=== PATIENT | female | born 1945 | race Caucasian/White ===

== ENCOUNTER 2020-10-04 09:27 | Outpatient (REF) | payer MEDICARE, SELFPAY ==
[2020-10-04 11:16] LABS: MANUAL DIFF FLAG NO
[2020-10-04 11:20] LABS: Glucose Urine UA NEG (NEG); Leukocyte Esterase Urine TRACE (NEG); Nitrite Urine NEG (NEG); PH 5.5 (5.0-8.0); Urine Blood NEG (NEG); Urine Ketones NEG (NEG); Urine Protein NEG (NEG-TRACE)
[2020-10-04 11:21] LABS: Appearance Urine HAZY; Color Urine YELLOW
[2020-10-04 11:37] LABS: Basophils Percent Auto 0.8 % (0-2); Eosinophils Absolute Auto 0.2 X10*3/uL (0.0-0.4); Eosinophils Percent Auto 3.8 % (0-4); Hematocrit 34.2 % (37-47); Hemoglobin 11.1 g/dl (12.0-16.0); Imm Gran Abs Auto 0.02 X10*3/uL (0.00-0.03); Imm Gran Pct Auto 0.4 % (0.0-0.4); Lymphocytes Absolute Auto 1.6 X10*3/uL (1.2-4.9); Lymphocytes Percent Auto 32.7 % (20-40); Mean Corpuscular HGB Conc 32.5 g/dl (31.0-35.0); Mean Corpuscular Hemoglobin 29.8 pg (27.0-33.0); Mean Corpuscular Volume 91.9 fL (80-98); Mean Platelet Volume 10.9 fL (9.4-12.3); Monocytes Absolute Auto 0.3 X10*3/uL (0.1-1.2); Monocytes Percent Auto 5.8 % (2-11); Neutrophils Absolute Auto 2.8 X10*3/uL (2.0-8.3); Neutrophils Percent Auto 56.5 % (45-73); Platelet Count 247 X10*3/uL (160-400); Red Blood Count 3.72 X10*6/uL (4.20-5.50)
[2020-10-04 11:54] LABS: Microalbum/Creatinine Ratio Ur 22.6 ug/mg cr
[2020-10-04 12:00] LABS: Alanine Aminotransferase 12 U/L (0-31); Albumin Level 3.8 g/dL (3.5-5.0); Alkaline Phosphatase 58 U/L (39-117); Anion Gap 11 (12-20); Aspartate Amino Transferase 13 U/L (5-31); Bilirubin Total 0.5 mg/dL (0.0-1.0); Blood Urea Nitrogen 23 mg/dL (9-16); Calcium 9.6 mg/dL (8.4-10.2); Carbon Dioxide 24 mmol/L (22-29); Chloride 108 mmol/L (96-108); Cholesterol 177 mg/dL; Estimated Glomerular Filt Rate > 60; Glucose Fasting 95 mg/dL (60-99); HDL Cholesterol 46 mg/dL; LDL Cholesterol Calculated 101 mg/dl; Potassium 4.4 mmol/L (3.3-5.1); Sodium 139 mmol/L (135-145); Triglycerides 154 mg/dL
[2020-10-04 12:04] LABS: Bacteria Urine 2+ /LPF; RBC Urine 0 /HPF (0); Squamous Epithelial Cell Urine 3+ /LPF
[2020-10-04 12:05] LABS: Estimated Average Glucose 111 mg/dL; Hemoglobin A1c % 5.5 %
[2020-10-04 12:39] LABS: Reflex LDLD? No
== END 2020-10-04 09:28 | disposition home or self-care (01) ==
LOC: HO.HMGCLDS 09:27
PROVIDERS: Visit Provider Internal Medicine
DX: I10 Essential (primary) hypertension (principal); R73.03 Prediabetes; E78.00 Pure hypercholesterolemia, unspecified; Z00.00 Encounter for general adult medical examination without abnormal findings
CPT/HCPCS: 36415; 80053; 80061; 81001; 82043; 83036; 85025

== ENCOUNTER 2020-11-22 09:29 | Inpatient (IN) | payer MEDICARE, SELFPAY ==
[2020-11-22] VITALS (9 sets, daily range): BP systolic 97–147; BP diastolic 45–78; PULSE 28–80; RESP 12–18; TEMP 36.4–37.2; O2SAT 96–100; BMI 32.5
--- NOTE | ~2020-11-22 | XR_ITS ---
EXAMINATION: XR CHEST CLINICAL INFORMATION: Pacemaker placed. COMPARISON: Chest 11/22/2020 TECHNIQUE: Frontal view of the chest was obtained. FINDINGS: There is interval insertion of pacemaker as with there are electrodes in the right atrium and right ventricle. The lungs are hyperexpanded but clear. The heart size is borderline enlarged. Pulmonary vascularity is normal. No gross bony abnormality seen. XR/XR chest 1V IMPRESSION: Hypoexpanded lungs with no acute process. New pacer electrodes with their tips in the right atrium and right ventricle. No pneumothorax seen.
--- NOTE | ~2020-11-22 | XR_ITS ---
EXAMINATION: XR CHEST CLINICAL INFORMATION: Weakness COMPARISON: Previous chest x-ray most recent December 2018 TECHNIQUE: Frontal view of the chest was obtained. FINDINGS: The lung volumes are low. The cardiac silhouette is slightly is enlarged but stable. Hilar and mediastinal contours are unremarkable. There is subsegmental atelectasis at the right lung base. The lungs are otherwise clear. There is no pleural effusion or pneumothorax. There are degenerative changes of the spine. XR/XR chest 1V IMPRESSION: Enlarged cardiac silhouette similar to previous exam. Low lung volumes and subsegmental atelectasis at the right lung base.
--- NOTE | ~2020-11-22 | CT_ITS ---
EXAMINATION: CT HEAD WITHOUT CONTRAST CLINICAL INFORMATION: Weakness. Acute mental status change. COMPARISON: None TECHNIQUE: Contiguous axial imaging was performed from the skull base to vertex without intravenous administration of contrast. This CT examination was performed using dose optimization techniques as appropriate, variously including the following: *Automated exposure control *Adjustment of mA and/or kV according to patient size (this includes techniques or standardized protocols for targeted exams where dose is matched to indication/reason for exam; i.e. extremities or head) *Use of iterative reconstruction technique DLP: 615 mGy-cm FINDINGS: There is no evidence of an extra-axial collection. There is no evidence of intra-axial or extra-axial hemorrhage. The ventricles and extra-axial CSF spaces are appropriate for age. There is nonspecific periventricular white matter disease. There are old lateral basal ganglia lacunar infarcts. No mass, mass effect or acute infarct is seen. Review at bone windows is normal. No skull fracture is seen. There is a polyp or cyst in the left maxillary sinus. Visualized paranasal sinuses, mastoid air cells and middle ears are otherwise clear. There are multiple left parotid lesions. The largest measures 8 mm. These do not appear appreciably changed from previous head and neck CTA August 2016. The right parotid gland is not included in the [id number]. CT/CT head/brain wo con IMPRESSION: No acute findings. Old bilateral basal ganglia lacunar infarcts and nonspecific periventricular white matter disease.
--- NOTE | ~2020-11-22 | FL_ITS ---
EXAMINATION: XR FLUOROSCOPY WITH IMAGES CLINICAL INFORMATION: Pacemaker placement COMPARISON: Portable chest radiograph 11/22/2020 TECHNIQUE: Fluoroscopy performed by Dr. Damien Lyles. Fluoroscopy time: 3.6 minutes DAP: 17.5 Gycm2 Images: 1 FINDINGS: Spot view targeted to the lower chest demonstrates pacemaker leads overlying the right atrium and right ventricle. FL/FL guidance in OR IMPRESSION: Fluoroscopy for pacemaker placement.
--- NOTE | ~2020-11-22 | MR_ITS ---
EXAMINATION: MRI BRAIN WITHOUT CONTRAST CLINICAL INFORMATION: Right-sided weakness. COMPARISON: CT scan of the head 11/22/2020. TECHNIQUE: Multiplanar MR imaging of the brain was performed without contrast. FINDINGS: There are scattered nonspecific foci of T2 FLAIR signal hyperintensity within the periventricular white matter that most likely represent a chronic manifestation of small vessel ischemia. No acute territorial infarct. No pathological magnetic susceptibility artifact. Intracranial vascular flow voids are maintained. There is no intracranial mass effect or midline shift. No abnormal extra-axial collection. Lateral and third ventricles are normal. No hydrocephalus. Midline structures including the cervicomedullary junction are normal. No acute bone marrow signal changes. There is no mastoid middle ear effusion. A few small retention cysts within the alveolar recess of the left maxillary sinus are noted. Globes and orbits are symmetric. MR/MR head/brain wo con IMPRESSION: There are numerous chronic small vessel ischemic changes within the periventricular white matter. No evidence of acute territorial infarct or hemorrhage.
--- NOTE | 2020-11-22 09:51 | ECG_ITS ---
Test Reason : WEAKNESS Blood Pressure : / mmHG Vent. Rate : 047 BPM Atrial Rate : 047 BPM P-R Int : 150 ms QRS Dur : 094 ms QT Int : 422 ms P-R-T Axes : 000 002 026 degrees QTc Int : 373 ms Poor data quality Sinus bradycardia with sinus arrhythmia Otherwise normal ECG When compared with ECG of 23-DEC-2018 10:59, No significant changes seen Referred By: Kimberly Munoz Electronically Signed By:Mikael Faulkner
--- NOTE | 2020-11-22 10:55 | ED_ITS ---
HPI - Weakness General Chief complaint: Weakness Stated complaint: INCREASED WEAKNESS & CONFUSION X'S DAYS Time Seen by Provider: 11/22/20 09:50 Source: patient Mode of arrival: ambulatory History of Present Illness HPI Narrative: 75-year-old female with a past medical history of HTN, HLD, breast CA, dementia, brought in by family for increased confusion noted yesterday around 3:00 p.m., difficulty ambulating, and leading to right side. No reported falls or trauma, take baby ASA. No reported fever, cough. Patient denies CP/SOB, abdominal pain History limited secondary to patient's baseline dementia Related Data Home Medications Medication Instructions Recorded Confirmed amlodipine 1 tab PO DAILY 11/22/20 11/22/20 aspirin 81 mg PO DAILY 11/22/20 11/22/20 atorvastatin 1 tab PO DAILY 11/22/20 11/22/20 donepezil 1 tab PO BEDTIME 11/22/20 11/22/20 doxazosin 1 tab PO DAILY 11/22/20 11/22/20 folic acid 0.4 mg PO DAILY 11/22/20 11/22/20 potassium chloride 1 tab PO DAILY 11/22/20 11/22/20 tamoxifen 1 tab PO DAILY 11/22/20 11/22/20 valsartan-hydrochlorothiazide 1 tab PO DAILY 11/22/20 11/22/20 Allergies Allergy/AdvReac Type Severity Reaction Status Date / Time clindamycin [Clindamycin] Allergy Mild HIVES, RASH Verified 11/22/20 09:49 lisinopril [LISINOPRIL] Allergy Unknown COUGH Verified 11/22/20 09:49 Clindamycin HCl Allergy Unknown rash Uncoded 03/12/17 00:00 Review of Systems Review of Systems: Constitutional: No Fever, No Chills Cardiovascular: No Chest Pain, No SOB, No Edema Respiratory: No Cough, No Dyspnea Gastrointestinal: No Nausea, No Vomiting, No Abdominal pain Musculoskeletal: No joint pain, No Joint Swelling Skin: No Skin Lesions, No rash Neuro: + AMS, +increased confusion, +difficulty ambulating Yes all other systems are reviewed and are negative [facility] Past Medical History Attestation statement: The following information was validated with the patient. Medical History (Updated 11/22/20 @ 09:46 by Cuca Bradford) Breast cancer Dementia High cholesterol HTN (hypertension) Surgical History (Updated 11/22/20 @ 09:46 by Cuca Bradford) H/O lumpectomy Social History Social History Patient Tobacco Use Status: Never used Tobacco Use of substances other than those prescribed or required for medical reasons: No Advance Directives: Yes Advance Directives Information Provided: No Advance Directives on File: No Physical Exam Vital Signs: Vital Signs: Last Vital Signs Temp 97.6 F 11/22/20 09:42 Pulse 61 11/22/20 12:31 Resp 16 11/22/20 12:03 BP 123/53 L 11/22/20 12:31 Pulse Ox 100 11/22/20 12:03 Body Mass Index 32.5 Const: General: cooperative Orientation/consciousness: oriented to person and oriented to place Limitations: other limitations (dementia) HENMT: Head: Yes normal to inspection and Yes atraumatic Ears: hearing grossly normal bilaterally General nose exam: Normal external nose present Face and sinus: Yes normal facial exam Eyes: General: appearance normal, both eyes and all related structures EOM: EOMs intact bilaterally Neck: Neck: Yes normal visual inspection Resp: Effort & Inspection: normal respiratory effort Auscultation: clear to auscultation bilaterally, no rales and no wheezes Cardio: Rate: bradycardic Heart sounds: S1 normal heart sound present and S2 normal heart sound present GI: Inspection: Yes normal to inspection Palpation (GI): Soft to palpation, nontender, no guarding and not rigid Skin: Rashes: no rashes Wounds: no wounds Neuro: Other: Rightward leaning. Able to perform [id number] on the right, not following commands to perform on left General: oriented to person, oriented to place and tone normal Cranial nerves: Yes CN's II-XII intact bilaterally Motor exam (neuro): Abnormal motor strength present (Decreased strength in LLE) Extrem: General: Yes normal to inspection NIH Stroke Scale Internal: Initial- Upon Arrival Level of Consciousness: Alert Level of Consciousness Questions: Answers one question correctly Level of Consciousness Commands: Performs both tasks correctly Best Gaze: Normal Visual: No visual loss Facial Palsy: Normal Motor Arm (Right): No drift Motor Arm (Left): No drift Motor Leg (Right): No drift Motor Leg (Left): No effort against gravity Limb Ataxia: Absent Sensory: Normal Best Language: No aphasia Dysarthia: Normal Extinction and Inattention: No abnormality Score: 4 Course Course Course Narrative: -no leukocytosis, H&H stable low 2.9 > 10 mEq x4 IV repletion ordered. THEO with creatinine 1.6. Troponin elevated at 46.9 > will obtain 3 hour repeat -patient bradycardic down to 24, 0.5 mg of Atropine given heart rate improved to 66. Family at bedside signed MOLST form patient is now DNR/DNI however family agreeable for pacemaker placement. -1230--spoke to Cardiology Dr. Faulkner he will evaluate patient in the ED. Recommended consulting thoracic surgery. Thoracic's paged XR chest 1V IMPRESSION: Enlarged cardiac silhouette similar to previous exam. Low lung volumes and subsegmental atelectasis at the right lung base. CT head/brain wo con IMPRESSION: No acute findings. Old bilateral basal ganglia lacunar infarcts and nonspecific periventricular white matter disease. -1317--spoke to thoracic surgery PA, aware of case, pending Dr. Limon recommendations for pacermaker type/time for placement MDM - Weakness MDM Narrative Medical decision making narrative: 75-year-old female with a past medical hi story of HTN, HLD, breast CA, dementia, brought in by family for increased confusion noted yesterday around 3:00 p.m., difficulty ambulating, and leading to right side. On exam bradycardic, right were leaning, physical exam as above. No signs of trauma. NIHSS =4 however patient unable to perform complete exam secondary to dementia/AMS. Patient is not a candidate for tPA, out of the window. Concern for CVA vs metabolic/infectious etiology Plan: EKG, labs, head CT, CXR, anticipated admission Medical Records Attestation: I reviewed the patient's medical records. Lab Data Attestation: I reviewed the patient's lab results. Result diagrams: 11/22/20 11:03 11/22/20 11:03 Labs: Lab Results 11/22/20 11/22/20 11/22/20 Range/Units 11:03 11:03 11:03 WBC 6.0 (4.8-10.8) X10*3/uL RBC 3.71 L (4.20-5.50) X10*6/uL Hgb 10.9 L (12.0-16.0) g/dl Hct 33.3 L (37-47) % MCV 89.8 (80-98) fL MCH 29.4 (27.0-33.0) pg MCHC 32.7 (31.0-35.0) g/dl RDW 12.7 (11.0-16.0) % Plt Count 206 (160-400) X10*3/uL MPV 10.5 (9.4-12.3) fL Immature Gran % (Auto) 0.2 (0.0-0.4) % Neut % (Auto) 75.0 H (45-73) % Lymph % (Auto) 17.4 L (20-40) % [place] % (Auto) 5.9 (2-11) % Eos % (Auto) 0.8 (0-4) % Baso % (Auto) 0.7 (0-2) % Lymph # (Auto) 1.0 L (1.2-4.9) X10*3/uL [place] # (Auto) 0.4 (0.1-1.2) X10*3/uL Eos # (Auto) 0.1 (0.0-0.4) X10*3/uL Baso # (Auto) 0.0 (0.0-0.2) X10*3/uL Abs Immat Gran (auto) 0.01 (0.00-0.03) X10*3/uL Absolute Neuts (auto) 4.5 (2.0-8.3) X10*3/uL Absolute Nucleated RBC 0.000 (0.0-0.012) X10*3/uL Nucleated RBC % (auto) 0.0 (0.0-0.2) /100WBC PT 12.7 (10.8-13.0) SEC INR 1.1 (0.9-1.1) APTT 26.4 (24.1-38.0) SEC Sodium 140 (135-145) mmol/L Potassium 2.9 L D (3.3-5.1) mmol/L Chloride 109 H (96-108) mmol/L Carbon Dioxide 20 L (22-29) mmol/L Anion Gap 14 (12-20) BUN 32 H (9-16) mg/dL Creatinine 1.65 H (0.5-1.4) mg/dL Estim Creat Clear Calc 28.6 Estimated GFR 30 Random Glucose 97 (60-115) mg/dL Lactic Acid (0.5-2.0) mmol/L Calcium 9.7 (8.4-10.2) mg/dL Magnesium 2.2 (1.6-2.6) mg/dL Total Bilirubin 0.4 (0.0-1.0) mg/dL Direct Bilirubin 0.2 (0.0-0.5) mg/dL AST 56 H (5-31) U/L ALT 22 (0-31) U/L Alkaline Phosphatase 62 (39-117) U/L Ammonia (13-55) umol/L Troponin I High Sens (<3.5-17.0) ng/L B-Natriuretic Peptide (<100) pg/mL Total Protein 6.5 (6.5-8.0) g/dL Albumin 3.5 (3.5-5.0) g/dL Lipase 33 (8-78) U/L TSH 0.90 (0.32-4.0) uIU/mL Urine Color Urine Appearance Urine pH (5.0-8.0) Ur Specific [place] (1.005-1.025) Urine Protein (NEG-TRACE) MG/DL Urine Glucose (UA) (NEG) MG/DL Urine Ketones (NEG) MG/DL Urine Blood (NEG) Urine Nitrite (NEG) Ur Leukocyte Esterase (NEG) COVID-19 (JANET) (Negative) COVID-19 Clin Com 11/22/20 11/22/20 11/22/20 Range/Units 11:03 11:03 11:03 WBC (4.8-10.8) X10*3/uL RBC (4.20-5.50) X10*6/uL Hgb (12.0-16.0) g/dl Hct (37-47) % MCV (80-98) fL MCH (27.0-33.0) pg MCHC (31.0-35.0) g/dl RDW (11.0-16.0) % Plt Count (160-400) X10*3/uL MPV (9.4-12.3) fL Immature Gran % (Auto) (0.0-0.4) % Neut % (Auto) (45-73) % Lymph % (Auto) (20-40) % [place] % (Auto) (2-11) % Eos % (Auto) (0-4) % Baso % (Auto) (0-2) % Lymph # (Auto) (1.2-4.9) X10*3/uL [place] # (Auto) (0.1-1.2) X10*3/uL Eos # (Auto) (0.0-0.4) X10*3/uL Baso # (Auto) (0.0-0.2) X10*3/uL Abs Immat Gran (auto) (0.00-0.03) X10*3/uL Absolute Neuts (auto) (2.0-8.3) X10*3/uL Absolute Nucleated RBC (0.0-0.012) X10*3/uL Nucleated RBC % (auto) (0.0-0.2) /100WBC PT (10.8-13.0) SEC INR (0.9-1.1) APTT (24.1-38.0) SEC Sodium (135-145) mmol/L Potassium (3.3-5.1) mmol/L Chloride (96-108) mmol/L Carbon Dioxide (22-29) mmol/L Anion Gap (12-20) BUN (9-16) mg/dL Creatinine (0.5-1.4) mg/dL Estim Creat Clear Calc Estimated GFR Random Glucose (60-115) mg/dL Lactic Acid 0.9 (0.5-2.0) mmol/L Calcium (8.4-10.2) mg/dL Magnesium (1.6-2.6) mg/dL Total Bilirubin (0.0-1.0) mg/dL Direct Bilirubin (0.0-0.5) mg/dL AST (5-31) U/L ALT (0-31) U/L Alkaline Phosphatase (39-117) U/L Ammonia 34 (13-55) umol/L Troponin I High Sens 46.9 H* (<3.5-17.0) ng/L B-Natriuretic Peptide 76 (<100) pg/mL Total Protein (6.5-8.0) g/dL Albumin (3.5-5.0) g/dL Lipase (8-78) U/L TSH (0.32-4.0) uIU/mL Urine Color Urine Appearance Urine pH (5.0-8.0) Ur Specific [place] (1.005-1.025) Urine Protein (NEG-TRACE) MG/DL Urine Glucose (UA) (NEG) MG/DL Urine Ketones (NEG) MG/DL Urine Blood (NEG) Urine Nitrite (NEG) Ur Leukocyte Esterase (NEG) COVID-19 (JANET) (Negative) COVID-19 Clin Com 11/22/20 11/22/20 Range/Units 11:39 11:54 WBC (4.8-10.8) X10*3/uL RBC (4.20-5.50) X10*6/uL Hgb (12.0-16.0) g/dl Hct (37-47) % MCV (80-98) fL MCH (27.0-33.0) pg MCHC (31.0-35.0) g/dl RDW (11.0-16.0) % Plt Count (160-400) X10*3/uL MPV (9.4-12.3) fL Immature Gran % (Auto) (0.0-0.4) % Neut % (Auto) (45-73) % Lymph % (Auto) (20-40) % [place] % (Auto) (2-11) % Eos % (Auto) (0-4) % Baso % (Auto) (0-2) % Lymph # (Auto) (1.2-4.9) X10*3/uL [place] # (Auto) (0.1-1.2) X10*3/uL Eos # (Auto) (0.0-0.4) X10*3/uL Baso # (Auto) (0.0-0.2) X10*3/uL Abs Immat Gran (auto) (0.00-0.03) X10*3/uL Absolute Neuts (auto) (2.0-8.3) X10*3/uL Absolute Nucleated RBC (0.0-0.012) X10*3/uL Nucleated RBC % (auto) (0.0-0.2) /100WBC PT (10.8-13.0) SEC INR (0.9-1.1) APTT (24.1-38.0) SEC Sodium (135-145) mmol/L Potassium (3.3-5.1) mmol/L Chloride (96-108) mmol/L Carbon Dioxide (22-29) mmol/L Anion Gap (12-20) BUN (9-16) mg/dL Creatinine (0.5-1.4) mg/dL Estim Creat Clear Calc Estimated GFR Random Glucose (60-115) mg/dL Lactic Acid (0.5-2.0) mmol/L Calcium (8.4-10.2) mg/dL Magnesium (1.6-2.6) mg/dL Total Bilirubin (0.0-1.0) mg/dL Direct Bilirubin (0.0-0.5) mg/dL AST (5-31) U/L ALT (0-31) U/L Alkaline Phosphatase (39-117) U/L Ammonia (13-55) umol/L Troponin I High Sens (<3.5-17.0) ng/L B-Natriuretic Peptide (<100) pg/mL Total Protein (6.5-8.0) g/dL Albumin (3.5-5.0) g/dL Lipase (8-78) U/L TSH (0.32-4.0) uIU/mL Urine Color YELLOW Urine Appearance CLEAR Urine pH 6.0 (5.0-8.0) Ur Specific [place] 1.025 (1.005-1.025) Urine Protein TRACE (NEG-TRACE) MG/DL Urine Glucose (UA) NEG (NEG) MG/DL Urine Ketones NEG (NEG) MG/DL Urine Blood NEG (NEG) Urine Nitrite NEG (NEG) Ur Leukocyte Esterase NEG (NEG) COVID-19 (JANET) Negative (Negative) COVID-19 Clin Com See Note ECG Data Attestation: I personally reviewed and interpreted this ECG as follows: ECG interpretation date: 11/22/20 ECG interpretation time: 09:58 Interpretation: EKG sinus bradycardia. Artifact present. No STEMI. QTC 373 Discharge Plan Discharge Prescriptions: No Action atorvastatin 80 mg tablet 1 tab PO DAILY RF: 0 donepezil 5 mg tablet 1 tab PO BEDTIME RF: 0 potassium chloride 10 mEq tablet extended release 1 tab PO DAILY RF: 0 folic acid 400 mcg Tablet 0.4 mg PO DAILY RF: 0 amlodipine 10 mg tablet 1 tab PO DAILY RF: 0 aspirin 81 mg Tablet,Chewable 81 mg PO DAILY RF: 0 tamoxifen 20 mg tablet 1 tab PO DAILY RF: 0 doxazosin 2 mg tablet 1 tab PO DAILY RF: 0 valsartan-hydrochlorothiazide 320-12.5 mg tablet 1 tab PO DAILY RF: 0
--- NOTE | 2020-11-22 11:09 | HE.PHANOTE ---
Med Rec completed from med list brought in with pt. Family states she takes OTC Folic Acid 1 tab daily
[2020-11-22 11:10] LABS: MANUAL DIFF FLAG NO
[2020-11-22 11:11] LABS: Basophils Percent Auto 0.7 % (0-2); Eosinophils Absolute Auto 0.1 X10*3/uL (0.0-0.4); Eosinophils Percent Auto 0.8 % (0-4); Hematocrit 33.3 % (37-47); Hemoglobin 10.9 g/dl (12.0-16.0); Imm Gran Abs Auto 0.01 X10*3/uL (0.00-0.03); Imm Gran Pct Auto 0.2 % (0.0-0.4); Lymphocytes Percent Auto 17.4 % (20-40); Mean Corpuscular HGB Conc 32.7 g/dl (31.0-35.0); Mean Corpuscular Hemoglobin 29.4 pg (27.0-33.0); Mean Corpuscular Volume 89.8 fL (80-98); Mean Platelet Volume 10.5 fL (9.4-12.3); Monocytes Absolute Auto 0.4 X10*3/uL (0.1-1.2); Monocytes Percent Auto 5.9 % (2-11); Neutrophils Absolute Auto 4.5 X10*3/uL (2.0-8.3); Platelet Count 206 X10*3/uL (160-400); Red Blood Count 3.71 X10*6/uL (4.20-5.50); Red Cell Distribution Width 12.7 % (11.0-16.0)
[2020-11-22 11:18] LABS: INTERNATIONAL NORM RATIO 1.1 (0.9-1.1); Prothrombin Time 12.7 SEC (10.8-13.0)
[2020-11-22 11:20] LABS: Partial Thromboplastin Time 26.4 SEC (24.1-38.0)
--- NOTE | 2020-11-22 11:20 | PC.NURSE ---
pt alert, oriented to self and place but some confusion at baseline per family. according the family pt has been more confused then usual and having difficulty with ambulating- at baseline able to shuffle and pivot but not able to do so at this time, also is leaning towards her right side for the past two days. pt's hr rate ranges from 29-50's on the monitor, bp maintained at this time. pt states having some nausea but no vomiting at this time, states having some knee pain as well. noticed some redness to the coccyx area. pt put on pacers pads
[2020-11-22 11:30] LABS: Ammonia 34 umol/L (13-55)
[2020-11-22 11:35] LABS: Lactic Acid 0.9 mmol/L (0.5-2.0)
[2020-11-22] MEDS: 0.9 % Sodium Chloride 1,000 ML 999 ML IVCONT (11:35)
--- NOTE | 2020-11-22 11:35 | PC.NURSE ---
pt bp slightly dropping, pt appears to slightly more drowsy as well, aware and ns 1000ml running
[2020-11-22 11:43] LABS: Alanine Aminotransferase 22 U/L (0-31); Albumin Level 3.5 g/dL (3.5-5.0); Alkaline Phosphatase 62 U/L (39-117); Aspartate Amino Transferase 56 U/L (5-31); Bilirubin Direct 0.2 mg/dL (0.0-0.5); Bilirubin Total 0.4 mg/dL (0.0-1.0); Blood Urea Nitrogen 32 mg/dL (9-16); Calcium 9.7 mg/dL (8.4-10.2); Creatinine Clr Calc Pharmacy 28.6; Estimated Glomerular Filt Rate 30; Glucose Random 97 mg/dL (60-115); Lipase 33 U/L (8-78); Magnesium 2.2 mg/dL (1.6-2.6); Total Protein 6.5 g/dL (6.5-8.0)
--- NOTE | 2020-11-22 11:45 | PC.NURSE ---
family members at bedside just signed a dnr order
[2020-11-22 11:48] LABS: B Type Natriuretic Peptide 76 pg/mL (<100); Troponin-I High Sensitivity 46.9 ng/L (<3.5-17.0)
[2020-11-22] MEDS: Atropine Sulfate 1 MG/10 ML SYRINGE 0.5 MG IVPUSH (11:52)
[2020-11-22 11:56] LABS: Anion Gap 14 (12-20); Carbon Dioxide 20 mmol/L (22-29); Chloride 109 mmol/L (96-108); Potassium 2.9 mmol/L (3.3-5.1); Sodium 140 mmol/L (135-145)
[2020-11-22 12:12] LABS: Appearance Urine CLEAR; Color Urine YELLOW; Glucose Urine UA NEG (NEG); Leukocyte Esterase Urine NEG (NEG); Nitrite Urine NEG (NEG); Specific Gravity - Urine 1.025 (1.005-1.025); Urine Blood NEG (NEG); Urine Ketones NEG (NEG); Urine Protein TRACE MG/DL (NEG-TRACE)
[2020-11-22 12:30] LABS: COVID-19 Test Negative (Negative); IDNOW Serial# 9DD0AD1C
[2020-11-22] MEDS: Potassium Chloride/H20 10 MEQ/100 ML PIGGYBACK 100 MEQ IV ×4 (12:43→18:23)
--- NOTE | 2020-11-22 14:10 | P.HPHOSP_ITS ---
History of Present Illness Date of Service: 11/22/20 Chief Complaint: ams 75-year-old female brought in by family for right-sided weakness and altered mental status. Patient has baseline dementia, but is normally communicative and ambulatory. Family noted the patient had become weak over the last couple days, specifically leaning towards the right side, and unable to walk on her own. She also seemed more lethargic and confused than her baseline. Symptoms seem to persist, therefore, patient was brought to the ED. In ED patient noted to have acute kidney injury, hyperkalemia, significant sinus bradycardia that responded to atropine. Patient is not on beta-natan or calcium channel natan, however, she is on Aricept. Review of Systems Review of Systems: Constitutional: Denies fever, denies Chills Eyes: denies blurry vision ENT: denies sore throat CVS: denies chest pain Respiratory: Denies dyspnea GI: no abdominal pain : denies dysuria MSK: denies neck pain Skin: denies rash Neuro: denies specific motor weakness Psych: denies suicidal ideation Endocrine: denies heat/cold intoleratnce Hematologic: denies easy bleeding Allergy: denies hives [facility] Medical History Breast cancer Dementia High cholesterol HTN (hypertension) Family history: reviewed and not pertinent Surgical History H/O lumpectomy Social History Patient Tobacco Use Status: Never used Tobacco Use of substances other than those prescribed or required for medical reasons: No Advance Directives: Yes Advance Directives Information Provided: No Advance Directives on File: No Meds Allergies Allergy/AdvReac Type Severity Reaction Status Date / Time clindamycin [Clindamycin] Allergy Mild HIVES, RASH Verified 11/22/20 09:49 lisinopril [LISINOPRIL] Allergy Unknown COUGH Verified 11/22/20 09:49 Clindamycin HCl Allergy Unknown rash Uncoded 03/12/17 00:00 Active Medications: Current Medications Generic Name Dose Route Start Last Admin Trade Name Freq PRN Reason Stop Dose Admin Potassium Chloride 10 meq in 100 mls @ 100 mls/hr 11/22/20 12:30 11/22/20 14:06 IV 11/22/20 16:29 100 mls/hr Q1H DAYANNA Administration Pharmacy Consult 1 each 11/22/20 09:50 Consult Rx Perform Med Rec MISCELLANE ONCE PRN Consult order Home Medications Medication Instructions Recorded Confirmed Last Taken Type amlodipine 1 tab PO DAILY 11/22/20 11/22/20 11/22/20 History aspirin 81 mg PO DAILY 11/22/20 11/22/20 11/22/20 History atorvastatin 1 tab PO DAILY 11/22/20 11/22/20 11/22/20 History donepezil 1 tab PO BEDTIME 11/22/20 11/22/20 11/22/20 History doxazosin 1 tab PO DAILY 11/22/20 11/22/20 11/22/20 History folic acid 0.4 mg PO DAILY 11/22/20 11/22/20 11/22/20 History potassium chloride 1 tab PO DAILY 11/22/20 11/22/20 11/22/20 History tamoxifen 1 tab PO DAILY 11/22/20 11/22/20 11/22/20 History valsartan-hydrochlorothiazide 1 tab PO DAILY 11/22/20 11/22/20 11/22/20 History Physical Exam Vital Signs and Narrative: Vital Signs: Last Vital Signs Temp 97.6 F 11/22/20 09:42 Pulse 61 11/22/20 12:31 Resp 16 11/22/20 12:03 BP 123/53 L 11/22/20 12:31 Pulse Ox 100 11/22/20 12:03 Body Mass Index 32.5 General: no acute distress HEENT: atraumatic Neck: normal to visual inspection CVS: S1, S2, RRR Resp: CTA bilateral Chest: non tender GI: soft, non tender, non distended : no CVA tenderness Skin: no rashes Extremities: no edema Neuro: Oriented X2, grossly weak, does not appear to have a focal deficit Psych: cooperative Results Labs CBC and Chem 7: 11/22/20 11:03 11/22/20 11:03 Labs: Laboratory Results - last 24 hr 11/22/20 11/22/20 11/22/20 11:03 11:03 11:03 MCV 89.8 MCH 29.4 MCHC 32.7 RDW 12.7 Plt Count 206 MPV 10.5 Immature Gran % (Auto) 0.2 Neut % (Auto) 75.0 H Lymph % (Auto) 17.4 L [place] % (Auto) 5.9 Eos % (Auto) 0.8 Baso % (Auto) 0.7 Lymph # (Auto) 1.0 L [place] # (Auto) 0.4 Eos # (Auto) 0.1 Baso # (Auto) 0.0 Abs Immat Gran (auto) 0.01 Absolute Neuts (auto) 4.5 Absolute Nucleated RBC 0.000 Nucleated RBC % (auto) 0.0 PT 12.7 INR 1.1 APTT 26.4 Anion Gap 14 Estim Creat Clear Calc 28.6 Estimated GFR 30 Random Glucose 97 Lactic Acid Calcium 9.7 Magnesium 2.2 Total Bilirubin 0.4 Direct Bilirubin 0.2 AST 56 H ALT 22 Alkaline Phosphatase 62 Ammonia Troponin I High Sens B-Natriuretic Peptide Total Protein 6.5 Albumin 3.5 Lipase 33 TSH 0.90 Urine Color Urine Appearance Urine pH Ur Specific [place] Urine Protein Urine Glucose (UA) Urine Ketones Urine Blood Urine Nitrite Ur Leukocyte Esterase COVID-19 (JANET) [facility] 11/22/20 11/22/20 11/22/20 11:03 11:03 11:03 MCV MCH MCHC RDW Plt Count MPV Immature Gran % (Auto) Neut % (Auto) Lymph % (Auto) [place] % (Auto) Eos % (Auto) Baso % (Auto) Lymph # (Auto) [place] # (Auto) Eos # (Auto) Baso # (Auto) Abs Immat Gran (auto) Absolute Neuts (auto) Absolute Nucleated RBC Nucleated RBC % (auto) PT INR APTT Anion Gap Estim Creat Clear Calc Estimated GFR Random Glucose Lactic Acid 0.9 Calcium Magnesium Total Bilirubin Direct Bilirubin AST ALT Alkaline Phosphatase Ammonia 34 Troponin I High Sens 46.9 H* B-Natriuretic Peptide 76 Total Protein Albumin Lipase TSH Urine Color Urine Appearance Urine pH Ur Specific [place] Urine Protein Urine Glucose (UA) Urine Ketones Urine Blood Urine Nitrite Ur Leukocyte Esterase COVID-19 (JANET) COVID-[employer] 11/22/20 11/22/20 11:39 11:54 MCV MCH MCHC RDW Plt Count MPV Immature Gran % (Auto) Neut % (Auto) Lymph % (Auto) [place] % (Auto) Eos % (Auto) Baso % (Auto) Lymph # (Auto) [place] # (Auto) Eos # (Auto) Baso # (Auto) Abs Immat Gran (auto) Absolute Neuts (auto) Absolute Nucleated RBC Nucleated RBC % (auto) PT INR APTT Anion Gap Estim Creat Clear Calc Estimated GFR Random Glucose Lactic Acid Calcium Magnesium Total Bilirubin Direct Bilirubin AST ALT Alkaline Phosphatase Ammonia Troponin I High Sens B-Natriuretic Peptide Total Protein Albumin Lipase TSH Urine Color YELLOW Urine Appearance CLEAR Urine pH 6.0 Ur Specific [place] 1.025 Urine Protein TRACE Urine Glucose (UA) NEG Urine Ketones NEG Urine Blood NEG Urine Nitrite NEG Ur Leukocyte Esterase NEG COVID-19 (JANET) Negative COVID-19 Clin Com See Note Imaging Radiologist's Impressions: Impressions Chest X-Ray 11/22/20 09:51 IMPRESSION: Enlarged cardiac silhouette similar to previous exam. Low lung volumes and subsegmental atelectasis at the right lung base. Head CT 11/22/20 09:51 IMPRESSION: No acute findings. Old bilateral basal ganglia lacunar infarcts and nonspecific periventricular white matter disease. Assessment and Plan (1) Bradycardia: Status: Acute 75F brought in for altered mental status and weakness, found to have severe bradycardia, THEO Metabolic encephalopathy and weakness Likely due to severe bradycardia Rule out CVA Check MRI Cardio and thoracic eval for possible pacer Monitor on telemetry Stop donepezil Acute kidney injury Hold valsartan, hydrochlorothiazide Monitor closely Status post 1 L normal saline Hypertension Amlodipine, doxazosin History of breast cancer Tamoxifen DNR DNI but open to pacer DVT prophylaxis with heparin
[2020-11-22 14:46] LABS: Troponin-I High Sensitivity 40.6 ng/L (<3.5-17.0)
--- NOTE | 2020-11-22 15:06 | PC.NURSE ---
called [facility] to give awaiting a call back
--- NOTE | 2020-11-22 15:27 | PC.NURSE ---
pt of to mri along with josefina rn on the monitor.
--- NOTE | 2020-11-22 15:45 | P.CONCA_ITS ---
History of Present Illness History of Present Illness Date of Service: 11/22/20 Requesting physician: Marquez Rivas Chief complaint: AMS [place] Narrative: 75-year-old female who is presenting with change in mental status and bradycardia. Patient has advanced dementia. Usually ambulatory and communicative as per chart review and discussion with medicine team. The family noticed her to be more weak over the last week and brought her in. There was also some concern about leading to her right side. She was noticed to be bradycardic in the ER in 30s. She had 1 EKG in the system which is showing heart rate of 47 beats per minute with significant artifact and difficult to know whether there is a block or not. In any case she received atropine with improvement in her heart rate. No clear hypotension is documented in the ER. She is demented and no history is possible from her. [facility] Past Medical History Medical History (Updated 11/22/20 @ 17:15 by Mikael Faulkner MD) Breast cancer Dementia High cholesterol HTN (hypertension) Family History Family history: reviewed and not pertinent Surgical History Surgical History H/O lumpectomy Social History Social History Patient Tobacco Use Status: Never used Tobacco Use of substances other than those prescribed or required for medical reasons: No Advance Directives: Yes Advance Directives Information Provided: No Advance Directives on File: No Meds Allergies Allergy/AdvReac Type Severity Reaction Status Date / Time clindamycin [Clindamycin] Allergy Mild HIVES, RASH Verified 11/22/20 09:49 lisinopril [LISINOPRIL] Allergy Unknown COUGH Verified 11/22/20 09:49 Clindamycin HCl Allergy Unknown rash Uncoded 03/12/17 00:00 Active Medications: Current Medications Generic Name Dose Route Start Last Admin Trade Name Freq PRN Reason Stop Dose Admin Amlodipine Besylate 10 mg 11/23/20 09:00 Amlodipine Besylate 10 Mg Tablet PO DAILY [facility] Protocol Atorvastatin Calcium 80 mg 11/23/20 21:00 Atorvastatin Calcium 80 Mg Tablet PO BEDTIME DAYANNA Doxazosin Mesylate 2 mg 11/23/20 09:00 Doxazosin Mesylate 2 Mg Tablet PO DAILY [facility] Protocol Heparin Sodium (Porcine) 5,000 unit 11/22/20 14:15 Heparin Sodium,Porcine 5,000 Unit/Ml Vial SUBCUT Q12H [facility] Potassium Chloride 10 meq in 100 mls @ 100 mls/hr 11/22/20 12:30 11/22/20 15:12 IV 11/22/20 16:29 100 mls/hr Q1H [facility] Administration Pharmacy Consult 1 each 11/22/20 09:50 Consult Rx Perform Med Rec MISCELLANE ONCE PRN Consult order Potassium Chloride 10 meq 11/23/20 09:00 Potassium Chloride Er 10 Meq Capsule.Er PO DAILY [facility] Sodium Chloride 3 ml 11/22/20 16:00 0.9 % Sodium Chloride Flush 3 Ml Syringe IVFLUSH QSHIFT [facility] Tamoxifen Citrate 20 mg 11/23/20 09:00 Tamoxifen Citrate 10 Mg Tablet PO DAILY [facility] Home Medications Medication Instructions Recorded Confirmed Last Taken Type amlodipine 1 tab PO DAILY 11/22/20 11/22/20 11/22/20 History aspirin 81 mg PO DAILY 11/22/20 11/22/20 11/22/20 History atorvastatin 1 tab PO DAILY 11/22/20 11/22/20 11/22/20 History donepezil 1 tab PO BEDTIME 11/22/20 11/22/20 11/22/20 History doxazosin 1 tab PO DAILY 11/22/20 11/22/20 11/22/20 History folic acid 0.4 mg PO DAILY 11/22/20 11/22/20 11/22/20 History potassium chloride 1 tab PO DAILY 11/22/20 11/22/20 11/22/20 History tamoxifen 1 tab PO DAILY 11/22/20 11/22/20 11/22/20 History valsartan-hydrochlorothiazide 1 tab PO DAILY 11/22/20 11/22/20 11/22/20 History Physical Exam Vital Signs: Vital Signs: Last Vital Signs Temp 98.4 F 11/22/20 15:09 Pulse 69 11/22/20 15:09 Resp 12 11/22/20 15:09 BP 133/63 11/22/20 15:09 Pulse Ox 97 11/22/20 15:09 Body Mass Index 32.5 GENERAL APPEARANCE: in no acute distress, confused. NECK: no carotid bruit, no jugular venous distention. SKIN: Sacral decubitus ulcer. HEART: no murmurs, regular rate and rhythm. LUNGS: clear to auscultation bilaterally. ABDOMEN: soft, nontender. EXTREMITIES: no edema. PERIPHERAL PULSES: equal. NEUROLOGIC: Oriented to self. Moving all extremities. Results Labs and Meds Result diagrams: 11/22/20 11:03 11/22/20 11:03 Lab results: Laboratory Results - last 24 hr 11/22/20 11/22/20 11/22/20 11:03 11:03 11:03 WBC 6.0 RBC 3.71 L Hgb 10.9 L Hct 33.3 L MCV 89.8 MCH 29.4 MCHC 32.7 RDW 12.7 Plt Count 206 MPV 10.5 Immature Gran % (Auto) 0.2 Neut % (Auto) 75.0 H Lymph % (Auto) 17.4 L [place] % (Auto) 5.9 Eos % (Auto) 0.8 Baso % (Auto) 0.7 Lymph # (Auto) 1.0 L [place] # (Auto) 0.4 Eos # (Auto) 0.1 Baso # (Auto) 0.0 Abs Immat Gran (auto) 0.01 Absolute Neuts (auto) 4.5 Absolute Nucleated RBC 0.000 Nucleated RBC % (auto) 0.0 PT 12.7 INR 1.1 APTT 26.4 Sodium 140 Potassium 2.9 L D Chloride 109 H Carbon Dioxide 20 L Anion Gap 14 BUN 32 H Creatinine 1.65 H Estim Creat Clear Calc 28.6 Estimated GFR 30 Random Glucose 97 Lactic Acid Calcium 9.7 Magnesium 2.2 Total Bilirubin 0.4 Direct Bilirubin 0.2 AST 56 H ALT 22 Alkaline Phosphatase 62 Ammonia Troponin I High Sens B-Natriuretic Peptide Total Protein 6.5 Albumin 3.5 Lipase 33 TSH 0.90 Urine Color Urine Appearance Urine pH Ur Specific [place] Urine Protein Urine Glucose (UA) Urine Ketones Urine Blood Urine Nitrite Ur Leukocyte Esterase COVID-19 (AJNET) COVID-19 Clin Com 11/22/20 11/22/20 11/22/20 11:03 11:03 11:03 WBC RBC Hgb Hct MCV MCH MCHC RDW Plt Count MPV Immature Gran % (Auto) Neut % (Auto) Lymph % (Auto) [place] % (Auto) Eos % (Auto) Baso % (Auto) Lymph # (Auto) [place] # (Auto) Eos # (Auto) Baso # (Auto) Abs Immat Gran (auto) Absolute Neuts (auto) Absolute Nucleated RBC Nucleated RBC % (auto) PT INR APTT Sodium Potassium Chloride Carbon Dioxide Anion Gap BUN Creatinine Estim Creat Clear Calc Estimated GFR Random Glucose Lactic Acid 0.9 Calcium Magnesium Total Bilirubin Direct Bilirubin AST ALT Alkaline Phosphatase Ammonia 34 Troponin I High Sens 46.9 H* B-Natriuretic Peptide 76 Total Protein Albumin Lipase TSH Urine Color Urine Appearance Urine pH Ur Specific [place] Urine Protein Urine Glucose (UA) Urine Ketones Urine Blood Urine Nitrite Ur Leukocyte Esterase COVID-19 (JANET) COVID-19 Clin Com 11/22/20 11/22/20 11/22/20 11:39 11:54 14:08 WBC RBC Hgb Hct MCV MCH MCHC RDW Plt Count MPV Immature Gran % (Auto) Neut % (Auto) Lymph % (Auto) [place] % (Auto) Eos % (Auto) Baso % (Auto) Lymph # (Auto) [place] # (Auto) Eos # (Auto) Baso # (Auto) Abs Immat Gran (auto) Absolute Neuts (auto) Absolute Nucleated RBC Nucleated RBC % (auto) PT INR APTT Sodium Potassium Chloride Carbon Dioxide Anion Gap BUN Creatinine Estim Creat Clear Calc Estimated GFR Random Glucose Lactic Acid Calcium Magnesium Total Bilirubin Direct Bilirubin AST ALT Alkaline Phosphatase Ammonia Troponin I High Sens 40.6 H* B-Natriuretic Peptide Total Protein Albumin Lipase TSH Urine Color YELLOW Urine Appearance CLEAR Urine pH 6.0 Ur Specific [place] 1.025 Urine Protein TRACE Urine Glucose (UA) NEG Urine Ketones NEG Urine Blood NEG Urine Nitrite NEG Ur Leukocyte Esterase NEG COVID-19 (JANET) Negative COVID-19 Clin Com See Note Imaging Radiologist's impression: Impressions Chest X-Ray 11/22/20 09:51 IMPRESSION: Enlarged cardiac silhouette similar to previous exam. Low lung volumes and subsegmental atelectasis at the right lung base. Head CT 11/22/20 09:51 IMPRESSION: No acute findings. Old bilateral basal ganglia lacunar infarcts and nonspecific periventricular white matter disease. Assessment and Plan (1) Bradycardia: Status: Acute (2) Dementia: Status: Acute 75-year-old female with dementia who is presenting with worsening weakness and bradycardia. She receive atropine in the ER. No clear documented heart block noticed. She is currently sinus rhythm in 60s to 70s. She is on Aricept which can lead to bradycardia. Please stop the Aricept. As per ER discussion with family, the family wants to consider a pacemaker. She seems quite demented and currently does not have clear evidence of heart block. We can monitor her of Aricept to see if he develops any recurrent episodes. Thoracic surgery was called by the emergency department. We will see if thoracic surgery feels she is a candidate for pacemaker. Thank you for allowing me to participate in the care of your patient. Please feel free to contact me if you have any questions. Procedures Date of Service Date of Service: 11/22/20
--- NOTE | 2020-11-22 16:14 | PC.NURSE ---
report given to Rufina pérez
[2020-11-22] MEDS: Heparin Sodium,Porcine 5,000 UNIT/ML VIAL 5000 UNIT SUBCUT (18:23)
[2020-11-22] MEDS: 0.9 % Sodium Chloride Flush 3 ML SYRINGE IVFLUSH (18:23)
[2020-11-23] VITALS (9 sets, daily range): BP systolic 121–155; BP diastolic 62–88; PULSE 48–74; RESP 18–20; TEMP 36.6–37.1; O2SAT 94–98; BMI 32.5
[2020-11-23] MEDS: Heparin Sodium,Porcine 5,000 UNIT/ML VIAL 5000 UNIT SUBCUT ×2 (02:08→15:47)
[2020-11-23] MEDS: 0.9 % Sodium Chloride Flush 3 ML SYRINGE IVFLUSH ×4 (02:09→20:21)
--- NOTE | 2020-11-23 03:31 | PC.NURSE ---
pt bradycardic throughout night. hr drop to 35 at times, nonsustaining. pt asymptomatic while this is happening. had a few pauses throughout night as well the longest being at 0200 length was 3.2 seconds. MD notified, will continue to reassess.
[2020-11-23 05:55] LABS: Hematocrit 30.6 % (37-47); Hemoglobin 10.1 g/dl (12.0-16.0); Mean Corpuscular Hemoglobin 29.5 pg (27.0-33.0); Mean Corpuscular Volume 89.5 fL (80-98); Mean Platelet Volume 10.6 fL (9.4-12.3); Platelet Count 222 X10*3/uL (160-400); Red Blood Count 3.42 X10*6/uL (4.20-5.50); Red Cell Distribution Width 12.6 % (11.0-16.0); White Blood Count 5.9 X10*3/uL (4.8-10.8)
[2020-11-23 06:20] LABS: Anion Gap 14 (12-20); Blood Urea Nitrogen 22 mg/dL (9-16); Calcium 9.3 mg/dL (8.4-10.2); Carbon Dioxide 19 mmol/L (22-29); Chloride 113 mmol/L (96-108); Creatinine Clr Calc Pharmacy 41.3; Estimated Glomerular Filt Rate 46; Glucose Random 78 mg/dL (60-115); Potassium 2.8 mmol/L (3.3-5.1); Sodium 143 mmol/L (135-145)
[2020-11-23] MEDS: amLODIPine Besylate 10 MG TABLET PO (08:58)
[2020-11-23] MEDS: Tamoxifen Citrate 10 MG TABLET 20 MG PO (08:58)
[2020-11-23] MEDS: Doxazosin Mesylate 2 MG TABLET PO (09:00)
--- NOTE | 2020-11-23 09:18 | MHC.CM.PN ---
Patient is here with Dementia and AMS; CM spoke with Daughter/HCP/Veronica @ [phone] and addressed IMM with her, providing the original at bedside, at her request and placing a copy on the chart. . Patient lives in a house with her Daughter and Son and uses a w/c to assist with mobility. Home with new referral to [facility] is the goal and CM has initiated and will follow for dc planning.PCP is Dr. Dhaval Garces.
--- NOTE | 2020-11-23 09:37 | P.CDIC_ITS ---
CDI Concurrent Query Service Date: 11/23/20 Documentation Clarification: Please clarify if you are treating a proba ble/suspected/likely or confirmed: Labs: Hypokalemia Please specify if known or other Provider Response: Other Other Diagnosis: Hypokalemia PLEASE DO NOT DELETE/MODIFY EXISTING CONTENT Additional information is needed in order to code to the highest accuracy and appropriate Severity of Illness (SOI). Please clarify the information noted below in your progress notes and discharge summary. Risk Factors/Clinical Indicators/Treatments LABS: potassium 2.8 IV potassium chloride CDS: Lashay Perez CCS, CDIS Contact Number: [phone]. [phone] Please Review the information above and exercise your independent professional judgment in responding to the query. If you concur, pleas document in the PROGRESS NOTES and DISCHARGE SUMMARY. If you do not agree with the query, please document in the query above. THIS QUERY IS PART OF THE PERMANENT MEDICAL RECORD
[2020-11-23] MEDS: Potassium Chloride Packet 20 MEQ PACKET 40 MEQ PO (11:37)
--- NOTE | 2020-11-23 12:11 | MHC.CLN ---
PO INTAKE 50% DIET RX: REGULAR-APPROPRIATE PT WITH INCREASED NUTRITION NEEDS R/T PRESSURE INJURY RECOMMEND ADDING LOIDA TO [employer]OM[employer] WOUND HEALING MONITOR PO INTAKE CLOSELY CAN ADD SUPPLEMENT IF PO INTAKE DECLINES
--- NOTE | 2020-11-23 12:40 | PM.PNCARD ---
Subjective Subjective Date of Service: 11/23/20 <ABBY Bass - Last Filed: 11/23/20 12:53> 11/23/20 <Mikael Faulkner MD - Last Filed: 11/23/20 15:29> Principal diagnosis: Bradycardia, dementia <ABBY Bass - Last Filed: 11/23/20 12:53> Interval history: Cardiology follow up for bradycardia. Seen at 1200. Today she is observed resting in bed, no acute distress. She is aware she is in [facility] [place] [place] but unsure why. No report of dizziness, CP, sob. With hx of dementia, full subjective exam not completed due to unclear accuracy. <ABBY Bass - Last Filed: 11/23/20 12:53> Review of Systems Review of Systems Yes Unobtainable due to mental status <ABBY Bass - Last Filed: 11/23/20 12:53> Physical Exam Vital Signs: Last Vital Signs Temp 98.7 F 11/23/20 11:06 Pulse 55 11/23/20 11:06 Resp 20 11/23/20 11:06 BP 123/88 11/23/20 11:06 Pulse Ox 96 11/23/20 11:06 Body Mass Index 32.5 <ABBY Bass - Last Filed: 11/23/20 12:53> Const General: cooperative, no acute distress, alert and awake <ABBY Bass - Last Filed: 11/23/20 12:53> Neck Neck: Yes normal visual inspection and Yes no JVD <ABBY Bass - Last Filed: 11/23/20 12:53> Resp Effort & Inspection: normal respiratory effort, able to speak in complete sentences and not labored <ABBY Bass - Last Filed: 11/23/20 12:53> Auscultation: clear to auscultation bilaterally, no crackles, no rales, no rhonchi and no wheezes <ABBY Bass - Last Filed: 11/23/20 12:53> Cardio Palpation: normal PMI <ABBY Bass - Last Filed: 11/23/20 12:53> Rate: regular rate <ABBY Bass - Last Filed: 11/23/20 12:53> Rhythm: regular rhythm <ABBY Bass Last Filed: 11/23/20 12:53> Heart sounds: S1 normal heart sound present and S2 normal heart sound present <ABBY Bass - Last Filed: 11/23/20 12:53> Peripheral pulses: Peripheral pulses 2+ throughout <ABBY Bass Last Filed: 11/23/20 12:53> GI Inspection: Yes normal to inspection <ABBY Bass - Last Filed: 11/23/20 12:53> Extrem General: Yes normal to inspection and No edema <ABBY Bass - Last Filed: 11/23/20 12:53> Results Labs and Meds Result diagrams: : 11/23/20 05:13 11/23/20 05:13 <ABBY Bass - Last Filed: 11/23/20 12:53> Lab results: Laboratory Results - last 24 hr 11/22/20 11/23/20 11/23/20 14:08 05:13 05:13 WBC 5.9 RBC 3.42 L Hgb 10.1 L Hct 30.6 L MCV 89.5 MCH 29.5 MCHC 33.0 RDW 12.6 Plt Count 222 MPV 10.6 Absolute Nucleated RBC 0.000 Nucleated RBC % (auto) 0.0 Sodium 143 Potassium 2.8 L Chloride 113 H Carbon Dioxide 19 L Anion Gap 14 BUN 22 H Creatinine 1.14 Estim Creat Clear Calc 41.3 Estimated GFR 46 Random Glucose 78 Calcium 9.3 Troponin I High Sens 40.6 H* <ABBY Bass - Last Filed: 11/23/20 12:53> Imaging Radiologist's impression: Impressions Brain MRI 11/22/20 14:09 IMPRESSION: There are numerous chronic small vessel ischemic changes within the periventricular white matter. No evidence of acute territorial infarct or hemorrhage. <Angélica English ABBY - Last Filed: 11/23/20 12:53> Progress Note: A&P Assessment and plan (1) Bradycardia: Status: Acute <ABBY Bass - Last Filed: 11/23/20 12:53> Assessment and Plan: Admit with weakness. Noted to have symptomatic bradycardia with pulse into 30s in ED. Given dose of atropine with improvement. EKG and Tele showing SR, rate range from 40s - 70. Longest pause 3.3 sec. No clear heart block noted. She does have hx of dementia and is ambulatory at home. She was on Aricept for dementia, which can cause bradycardia and has been stopped. Vascular surgery has been consulted to evaluated for PPM placement. Give no rate slowing medications. Ongoing tele monitoring. <ABBY Bass - Last Filed: 11/23/20 12:53> (2) Dementia: Status: Acute <ABBY Bass - Last Filed: 11/23/20 12:53> Fall Risk Details Current Medications: Current Medications Generic Name Dose Route Start Last Admin Trade Name Freq PRN Reason Stop Dose Admin Amlodipine Besylate 10 mg 11/23/20 09:00 11/23/20 08:58 Amlodipine Besylate 10 Mg Tablet PO 10 mg DAILY DAYANNA Administration Protocol Atorvastatin Calcium 80 mg 11/23/20 21:00 Atorvastatin Calcium 80 Mg Tablet PO BEDTIME DAYANNA Doxazosin Mesylate 2 mg 11/23/20 09:00 11/23/20 09:00 Doxazosin Mesylate 2 Mg Tablet PO 2 mg DAILY DAYANNA Administration Protocol Heparin Sodium (Porcine) 5,000 unit 11/22/20 14:15 11/23/20 02:08 Heparin Sodium,Porcine 5,000 Unit/Ml Vial SUBCUT 5,000 unit Q12H DAYANNA Administration Pharmacy Consult 1 each 11/22/20 09:50 Consult Rx Perform Med Rec MISCELLANE ONCE PRN Consult order Potassium Chloride 10 meq 11/23/20 09:00 11/23/20 09:01 Potassium Chloride Er 10 Meq Capsule.Er PO 10 meq DAILY DAYANNA Administration Sodium Chloride 3 ml 11/22/20 16:00 11/23/20 09:01 0.9 % Sodium Chloride Flush 3 Ml Syringe IVFLUSH 3 ml QSHIFT DAYANNA Administration Tamoxifen Citrate 20 mg 11/23/20 09:00 11/23/20 08:58 Tamoxifen Citrate 10 Mg Tablet PO 20 mg DAILY DAYANNA Administration <ABBY Bass - Last Filed: 11/23/20 12:53> Time Spent With Patient Time: Total time spent is greater than 50% in coordination of care (as documented) at patient's floor/unit and/or counseling patient: 14 <ABBY Bass - Last Filed: 11/23/20 12:53> Time with patient: less than 15 minutes <ABBY Bass - Last Filed: 11/23/20 12:53> Procedures Date of Service Date of Service: 11/23/20 <ABBY Bass - Last Filed: 11/23/20 12:53>
--- NOTE | 2020-11-23 13:35 | P.CONGS_ITS ---
History of Present Illness Consult details Consult date: 11/23/20 Reason for consult: other (Bradycardia) Requesting physician: Mikael Faulkner Narrative: Patient is a pleasantly confused 75-year-old female with a past medical hx of dementia who was brought in by family for right-sided weakness and altered mental status on 11/22/20. History was obtained by family as patient has baseline dementia and is a poor historian. According to family, patient had become more weak over the last couple days, specifically leaning towards the right side, and unable to walk on her own (she is normally ambulatory). She also seemed more lethargic and confused than her baseline. In ED patient noted to have acute kidney injury (Creatinine 1.65), hypokalemia (K 2.9), significant sinus bradycardia (HR in the 20's) that responded well to atropine. Patient is not on beta-natan or calcium channel natan, however, she is on Aricept. She was seen by [facility] [employer] Dr. Faulkner and a request has been made for a pacemaker to be placed for control of bradycardia. For this reason, Thoracic Surgery was consulted. Chest CXR, Brain MRI, and Head CT performed. No acute findings. Patient was seen and examined this am. She continued to call out for her da santiago Martin during my exam and would look out the window and point outside saying there are three boys out there, one is my nephew, he is 6 . Patient is currently located on the 4th floor. She was able to tell me that she has some pain to her midsternum radiating to right shoulder. She is breathing comfortably in bed and does not appear to be in any distress at this time. Review of Systems Review of Systems: Yes Unobtainable due to mental status [facility] Past Medical History Medical History (Updated 11/22/20 @ 17:15 by Mikael Faulkner MD) Breast cancer Dementia High cholesterol HTN (hypertension) Family History Family history: reviewed and not pertinent Surgical History Surgical History H/O lumpectomy Social History Social History Household Members: Children Housing: House Do you presently have visiting nurse or other home services: No Patient Tobacco Use Status: Never used Tobacco Advance Directives Date on File: 11/23/20 service: No Current occupational status: retired Meds Allergies Allergy/AdvReac Type Severity Reaction Status Date / Time clindamycin [Clindamycin] Allergy Mild HIVES, RASH Verified 11/22/20 09:49 lisinopril [LISINOPRIL] Allergy Unknown COUGH Verified 11/22/20 09:49 Clindamycin HCl Allergy Unknown rash Uncoded 03/12/17 00:00 Active Medications: Current Medications Generic Name Dose Route Start Last Admin Trade Name Freq PRN Reason Stop Dose Admin Amlodipine Besylate 10 mg 11/23/20 09:00 11/23/20 08:58 Amlodipine Besylate 10 Mg Tablet PO 10 mg DAILY [facility] Administration Protocol Atorvastatin Calcium 80 mg 11/23/20 21:00 Atorvastatin Calcium 80 Mg Tablet PO BEDTIME [facility] Doxazosin Mesylate 2 mg 11/23/20 09:00 11/23/20 09:00 Doxazosin Mesylate 2 Mg Tablet PO 2 mg DAILY [facility] Administration Protocol Heparin Sodium (Porcine) 5,000 unit 11/22/20 14:15 11/23/20 02:08 Heparin Sodium,Porcine 5,000 Unit/Ml Vial SUBCUT 5,000 unit Q12H [facility] Administration Pharmacy Consult 1 each 11/22/20 09:50 Consult Rx Perform Med Rec MISCELLANE ONCE PRN Consult order Potassium Chloride 10 meq 11/23/20 09:00 11/23/20 09:01 Potassium Chloride Er 10 Meq Capsule.Er PO 10 meq DAILY [facility] Administration Sodium Chloride 3 ml 11/22/20 16:00 11/23/20 09:01 0.9 % Sodium Chloride Flush 3 Ml Syringe IVFLUSH 3 ml QSHIFT [facility] Administration Tamoxifen Citrate 20 mg 11/23/20 09:00 11/23/20 08:58 Tamoxifen Citrate 10 Mg Tablet PO 20 mg DAILY [facility] Administration Home Medications Medication Instructions Recorded Confirmed Last Taken Type amlodipine 1 tab PO DAILY 11/22/20 11/22/20 11/22/20 History aspirin 81 mg PO DAILY 11/22/20 11/22/20 11/22/20 History atorvastatin 1 tab PO DAILY 11/22/20 11/22/20 11/22/20 History donepezil 1 tab PO BEDTIME 11/22/20 11/22/20 11/22/20 History doxazosin 1 tab PO DAILY 11/22/20 11/22/20 11/22/20 History folic acid 0.4 mg PO DAILY 11/22/20 11/22/20 11/22/20 History potassium chloride 1 tab PO DAILY 11/22/20 11/22/20 11/22/20 History tamoxifen 1 tab PO DAILY 11/22/20 11/22/20 11/22/20 History valsartan-hydrochlorothiazide 1 tab PO DAILY 11/22/20 11/22/20 11/22/20 History Physical Exam Vital Signs: Vital Signs: Last Vital Signs Temp 98.7 F 11/23/20 11:06 Pulse 55 11/23/20 11:06 Resp 20 11/23/20 11:06 BP 123/88 11/23/20 11:06 Pulse Ox 96 11/23/20 11:06 Body Mass Index 32.5 Const: General: cooperative, healthy appearing, comfortable and no acute distress Nutritional Appearance: well nourished Limitations: no limitations HENMT: Head: Yes normal to inspection, Yes normocephalic and Yes atraumatic Mouth: Normal oral and palatal mucosa present Eyes: Visual Almendarez: normal visual almendarez by confrontation Alignment and Position: alignment normal Periorbital: periorbital findings normal Conjunctivae: conjunctivae normal Sclerae: sclerae normal Pupils: Equal, round and reactive pupils present and Pupil accommodation reflex normal EOM: EOMs intact bilaterally Neck: Neck: Yes normal visual inspection, Yes full ROM, Yes no lymphadenopathy, Yes trachea midline, Yes supple, No lymphadenopathy, No tender and No tracheal deviation Lymphatic: no lymphadenopathy noted Chest: Chest palpation & inspection: normal inspection of the chest and no crepitus Resp: Effort & Inspection: normal respiratory effort, able to speak in complete sentences, normal respiratory pattern, no audible wheezes, no cough, no pursed lip breathing, no respiratory distress, no stridor, not tachypneic and no tracheal deviation Auscultation: clear to auscultation bilaterally Cardio: Jugular venous distension: no JVD Palpation: normal PMI Rate: bradycardic Rhythm: regular rhythm Heart sounds: S1 normal heart sound present, S2 normal heart sound present, no click, no gallops, no murmurs and no rubs GI: Inspection: Yes normal to inspection Auscultation: normal bowel sounds : General: Yes no CVA tenderness Back/Spine/Pelvis: Back: no CVA tenderness Thoracic/Lumbar Spine: thoracic and lumbar spine normal to inspection Skin: General skin exam: no rashes or lesions noted and dry skin Lesions: no lesions Rashes: no rashes Neuro: General: moves all extremities Cranial nerves: Yes Equal, round and reactive pupils present Extrem: General: Yes normal to inspection, Yes full ROM, Yes capillary refill normal, Yes no clubbing, cyanosis or edema, Yes no pedal edema and Yes normal gait Psych: Speech and movement: Normal speech and movement present and Clear speech present Affect: normal affect Thought process: Other thought process findings present (confused) Thought content: Hallucination(s) present Results Labs Result diagrams: 11/23/20 05:13 11/23/20 05:13 Labs: Abnormal lab results 11/22/20 11/23/20 11/23/20 Range/Units 14:08 05:13 05:13 RBC 3.42 L (4.20-5.50) X10*6/uL Hgb 10.1 L (12.0-16.0) g/dl Hct 30.6 L (37-47) % Potassium 2.8 L (3.3-5.1) mmol/L Chloride 113 H (96-108) mmol/L Carbon Dioxide 19 L (22-29) mmol/L BUN 22 H (9-16) mg/dL Troponin I High Sens 40.6 H* (<3.5-17.0) ng/L Short CBC 11/23/20 Range/Units 05:13 WBC 5.9 (4.8-10.8) X10*3/uL Hgb 10.1 L (12.0-16.0) g/dl Hct 30.6 L (37-47) % Plt Count 222 (160-400) X10*3/uL BMP 11/23/20 05:13 Sodium 143 Potassium 2.8 L Chloride 113 H Carbon Dioxide 19 L BUN 22 H Creatinine 1.14 Calcium 9.3 Urine 11/22/20 Range/Units 11:54 Urine Color YELLOW Urine Appearance CLEAR Urine pH 6.0 (5.0-8.0) Ur Specific Beecher 1.025 (1.005-1.025) Urine Protein TRACE (NEG-TRACE) MG/DL Urine Glucose (UA) NEG (NEG) MG/DL All other labs normal. MRI of Brain showed: There are numerous chronic small vessel ischemic changes within the periventricular white matter. No evidence of acute territorial infarct or hemorrhage. CT/CT head/brain wo con IMPRESSION: No acute findings. Old bilateral basal ganglia lacunar infarcts and nonspecific periventricular white matter disease. XR/XR chest 1V IMPRESSION: Enlarged cardiac silhouette similar to previous exam. Low lung volumes and subsegmental atelectasis at the right lung base. Assessment and Plan (1) Bradycardia: Status: Acute Patient is a 75 y.o. female who presents to with progressive weakness and confusion and found to be bradycardic in the 20's * Patient seen and examined this am. Confused. Tele strip reviewed, HR in the 50's with 3.3 sec pauses. * Due to patient's severe dementia, the benefits and risks were discussed re: a dual chamber pacemaker placement with Dr. Faulkner from Cardiology. Patient is ambulatory at baseline. Although a pacemaker would not prolong her life, it would aid in reducing her chances of falling. Frequent falls could be quite debilitating in a patient with dementia and affect her quality of life. By controlling her bradycardia with a pacemaker, it would reduce her chance for falls. * I spent approximately 10 mins discussing the benefits and risks of a pacemaker placement with patient's daughter and HCP Veronica Salazar ([phone]). She stated that she spoke with her brothers and sisters about potential pacemaker placement and they are all on board. * Patient will have a dual chamber pacemaker placed on 11/25/[address] Lyles. * She will need to be NPO prior to her surgery Case discussed with Dr. Lyles. Thank you for this consult. Procedures Date of Service Date of Service: 11/23/20
--- NOTE | 2020-11-23 16:29 | P.PNIM_ITS ---
Subjective Subjective Date of Service: 11/23/20 Interval History: the patient was seen and evaluated this morning Laying in bed, feels comfortable overall next [place] noticed to have bradycardia and episodes of pause of 3 seconds, asymptomatic. Denies any fever, chills or shortness of breath No reported other overnight events. Systemic review: No fever, chills or weakness No chest pain, palpitation Patient has advanced dementia and could not contribute much Physical Exam Vital Signs: Vital Signs: Last Vital Signs Temp 98.3 F 11/23/20 15:07 Pulse 57 11/23/20 15:07 Resp 20 11/23/20 15:07 BP 148/67 H 11/23/20 15:07 Pulse Ox 95 11/23/20 15:07 Body Mass Index 32.5 Const: Other: Constitutional : Alert, disoriented, not in distress Neck : Normal inspection, Supple Cardiovascular : RRR, S1 S2, lower extremity edema, bradycardia Respiratory : bilateral air entry, no crackles, wheezes or rhonchi Gastrointestinal: soft, lax, Normal bowel sounds, Non tender Skin : Warm/Dry, No rash Neurological : Alert & disoriented, No focal deficit Objective Data Current Medications Generic Name Dose Route Start Last Admin Trade Name Freq PRN Reason Stop Dose Admin Amlodipine Besylate 10 mg 11/23/20 09:00 11/23/20 08:58 Amlodipine Besylate 10 Mg Tablet PO 10 mg DAILY [facility] Administration Protocol Atorvastatin Calcium 80 mg 11/23/20 21:00 Atorvastatin Calcium 80 Mg Tablet PO BEDTIME [facility] Doxazosin Mesylate 2 mg 11/23/20 09:00 11/23/20 09:00 Doxazosin Mesylate 2 Mg Tablet PO 2 mg DAILY [facility] Administration Protocol Heparin Sodium (Porcine) 5,000 unit 11/22/20 14:15 11/23/20 15:47 Heparin Sodium,Porcine 5,000 Unit/Ml Vial SUBCUT 5,000 unit Q12H [facility] Administration Pharmacy Consult 1 each 11/22/20 09:50 Consult Rx Perform Med Rec MISCELLANE ONCE PRN Consult order Potassium Chloride 10 meq 11/23/20 09:00 11/23/20 09:01 Potassium Chloride Er 10 Meq Capsule.Er PO 10 meq DAILY [facility] Administration Sodium Chloride 3 ml 11/22/20 16:00 11/23/20 15:47 0.9 % Sodium Chloride Flush 3 Ml Syringe IVFLUSH 3 ml QSHIFT [facility] Administration Tamoxifen Citrate 20 mg 11/23/20 09:00 11/23/20 08:58 Tamoxifen Citrate 10 Mg Tablet PO 20 mg DAILY [facility] Administration Labs CBC & Chem 7: 11/23/20 05:13 11/23/20 05:13 Microbiology Microbiology Results: Microbiology 11/22/20 11:54 Blood - Venous Blood Culture - Preliminary No growth after 24 hours. 11/22/20 11:48 Blood - Venous Blood Culture - Preliminary No growth after 24 hours. Assessment and Plan (1) Bradycardia: Status: Acute Assessment and Plan: 75F brought in for altered mental status and weakness, found to have severe br adycardia, THEO Metabolic encephalopathy Secondary to underlying dementia and hospital stay Recurrent re orientation Generalized weakness Likely due to severe bradycardia Negative MRI Cardio and thoracic input appreciated, to place ppm Saturday afternoon Monitor on telemetry Stop donepezil Acute kidney injury Hold valsartan, hydrochlorothiazide Monitor closely Improving Hypokalemia Potassium of 2.8 Replacement given continue to monitor BMP Hypertension Amlodipine, doxazosin History of breast cancer Tamoxifen DNR DNI but open to pacer DVT prophylaxis with heparin
[2020-11-23] MEDS: Atorvastatin Calcium 80 MG TABLET PO (20:21)
[2020-11-24] VITALS (12 sets, daily range): BP systolic 112–151; BP diastolic 46–75; PULSE 52–90; RESP 12–22; TEMP 36.2–38.1; O2SAT 92–100
[2020-11-24] MEDS: Heparin Sodium,Porcine 5,000 UNIT/ML VIAL 5000 UNIT SUBCUT (02:01)
--- NOTE | 2020-11-24 04:40 | PC.NURSE ---
Pt having pauses on tele, longest pause 5.2 seconds. Sinus austen 40s-50s. Dr Rizzo made aware. Pacer pads at bedside. Pt awake and alert to person only d/t dementia.
[2020-11-24 07:49] LABS: Anion Gap 15 (12-20); Blood Urea Nitrogen 23 mg/dL (9-16); Calcium 9.4 mg/dL (8.4-10.2); Carbon Dioxide 21 mmol/L (22-29); Chloride 109 mmol/L (96-108); Creatinine Clr Calc Pharmacy 42.8; Estimated Glomerular Filt Rate 48; Glucose Random 68 mg/dL (60-115); Potassium 2.6 mmol/L (3.3-5.1); Sodium 142 mmol/L (135-145)
[2020-11-24] MEDS: 0.9 % Sodium Chloride Flush 3 ML SYRINGE IVFLUSH ×2 (08:02→20:02)
[2020-11-24] MEDS: Potassium Chloride/H20 10 MEQ/100 ML PIGGYBACK 100 MEQ IV ×4 (10:47→19:24)
[2020-11-24] MEDS: Atropine Sulfate 1 MG/10 ML SYRINGE 0.5 MG IVPUSH (10:47)
--- NOTE | 2020-11-24 10:47 | HO.PM.IMPN ---
Subjective Subjective Date of Service: 11/24/20 Interval History: The patient was seen and evaluated this morning Laying in bed, Multiple episodes of bradycardia and episodes of pause of 3 seconds noticed since last night, asymptomatic. Denies any fever, chills or shortness of breath No reported other overnight events. Systemic review: No fever, chills or weakness No chest pain, palpitation Patient has advanced dementia and could not contribute much Physical Exam Vital Signs: Vital Signs: Last Vital Signs Temp 99.5 F 11/24/20 07:39 Pulse 59 11/24/20 07:39 Resp 20 11/24/20 07:39 BP 135/72 11/24/20 07:39 Pulse Ox 94 11/24/20 07:39 Body Mass Index 32.5 Const: Other: Constitutional : Alert with stimulation, disoriented, not in distress Neck : Normal inspection, Supple Cardiovascular : RRR, S1 S2, lower extremity edema, bradycardia Respiratory : Decreased bilateral air entry, no crackles, wheezes or rhonchi Gastrointestinal: soft, lax, Normal bowel sounds, Non tender Skin : Warm/Dry, No rash Neurological : Alert with stimulation, not much verbal, No focal deficit Objective Data Current Medications Generic Name Dose Route Start Last Admin Trade Name Freq PRN Reason Stop Dose Admin Amlodipine Besylate 10 mg 11/23/20 09:00 11/23/20 08:58 Amlodipine Besylate 10 Mg Tablet PO 10 mg DAILY [facility] Administration Protocol Atorvastatin Calcium 80 mg 11/23/20 21:00 11/23/20 20:21 Atorvastatin Calcium 80 Mg Tablet PO 80 mg BEDTIME [facility] Administration Atropine Sulfate 0.5 mg 11/24/20 11:00 Atropine Sulfate 1 Mg/10 Ml Syringe IVPUSH 11/24/20 11:01 ONCE ONE Doxazosin Mesylate 2 mg 11/23/20 09:00 11/23/20 09:00 Doxazosin Mesylate 2 Mg Tablet PO 2 mg DAILY [facility] Administration Protocol Heparin Sodium (Porcine) 5,000 unit 11/22/20 14:15 11/24/20 02:01 Heparin Sodium,Porcine 5,000 Unit/Ml Vial SUBCUT 5,000 unit Q12H [facility] Administration Potassium Chloride 10 meq in 100 mls @ 100 mls/hr 11/24/20 11:00 IV 11/24/20 14:59 Q1H [facility] Cefazolin Sodium/Dextrose 2 gm in 50 mls @ 100 mls/hr 11/24/20 11:00 Ancef IV 11/25/20 10:59 PREOP REPLACED BY [facility] Pharmacy Consult 1 each 11/22/20 09:50 Consult Rx Perform Med Rec MISCELLANE ONCE PRN Consult order Potassium Chloride 10 meq 11/23/20 09:00 11/23/20 09:01 Potassium Chloride Er 10 Meq Capsule.Er PO 10 meq DAILY [facility] Administration Potassium Chloride 40 meq 11/24/20 11:00 Potassium Chloride Packet 20 Meq Packet PO 11/24/20 15:01 Q4H REPLACED BY [facility] Sodium Chloride 3 ml 11/22/20 16:00 11/24/20 08:02 0.9 % Sodium Chloride Flush 3 Ml Syringe IVFLUSH 3 ml QSHIFT [facility] Administration Tamoxifen Citrate 20 mg 11/23/20 09:00 11/23/20 08:58 Tamoxifen Citrate 10 Mg Tablet PO 20 mg DAILY [facility] Administration Labs CBC & Chem 7: 11/23/20 05:13 11/24/20 06:07 Microbiology Microbiology Results: Microbiology 11/22/20 11:54 Blood - Venous Blood Culture - Preliminary No growth after 24 hours. 11/22/20 11:48 Blood - Venous Blood Culture - Preliminary No growth after 24 hours. Assessment and Plan (1) Bradycardia: Status: Acute Assessment and Plan: 75F brought in for altered mental status and weakness, found to have severe bradycardia, THEO Metabolic encephalopathy Secondary to underlying dementia and hospital induced hypoactive delirium Recurrent re orientation Avoid medications that might alter her mentation Symptomatic bradycardia Generalized weakness Noticed episodes pauses and significant bradycardia in 20s and 30s Cardio and thoracic input appreciated, to place ppm this afternoon instead of tomorrow Patient kept NPO Monitor on telemetry Stop donepezil Acute kidney injury Hold valsartan, hydrochlorothiazide Monitor closely, improving Improving Hypokalemia Potassium of 2.6 To give IV and oral replacement continue to monitor BMP Hypertension Amlodipine, doxazosin History of breast cancer Tamoxifen DVT prophylaxis with heparin
--- NOTE | 2020-11-24 12:06 | PM.PNCARD ---
Subjective Subjective Date of Service: 11/24/20 Principal diagnosis: Bradycardia, dementia Interval history: Dementia, Sinus bradycardia and pauses >5 sec. Received atropine. Physical Exam Vital Signs: Last Vital Signs Temp 99.8 F 11/24/20 11:16 Pulse 69 11/24/20 11:16 Resp 20 11/24/20 11:16 BP 151/67 H 11/24/20 11:16 Pulse Ox 93 11/24/20 11:16 Body Mass Index 32.5 GENERAL APPEARANCE: in no acute distress, confused. NECK: no carotid bruit, no jugular venous distention. SKIN: Sacral decubitus ulcer. HEART: no murmurs, regular rate and rhythm. LUNGS: clear to auscultation bilaterally. ABDOMEN: soft, nontender. EXTREMITIES: no edema. PERIPHERAL PULSES: equal. NEUROLOGIC: Oriented to self. Moving all extremities. Results Labs and Meds Result diagrams: 11/23/20 05:13 11/24/20 06:07 Lab results: Laboratory Results - last 24 hr 11/24/20 11/24/20 06:07 08:57 Sodium 142 Potassium 2.6 L Chloride 109 H Carbon Dioxide 21 L Anion Gap 15 BUN 23 H Creatinine 1.10 Estim Creat Clear Calc 42.8 Estimated GFR 48 Random Glucose 68 Calcium 9.4 Blood Type A Positive Antibody Screen NEGATIVE Progress Note: A&P Assessment and plan (1) Bradycardia: Status: Acute (2) Sinus pause: Status: Acute Assessment and Plan: 75 female with dementia and sinus bradycardia + sinus pauses > 3 sec. Was waiting for PPM tomorrow. Had significant pauses this more > 5 sec. Hospital medicine team has transferred patient to ICU. Spoke with Dr Lyles who will arrange PPM in few hours. Keep NPO. Atropine at bedside. Pacer pads. Fall Risk Details Current Medications: Current Medications Generic Name Dose Route Start Last Admin Trade Name Freq PRN Reason Stop Dose Admin Amlodipine Besylate 10 mg 11/23/20 09:00 11/24/20 10:46 Amlodipine Besylate 10 Mg Tablet PO Not Given DAILY [facility] Protocol Atorvastatin Calcium 80 mg 11/23/20 21:00 11/23/20 20:21 Atorvastatin Calcium 80 Mg Tablet PO 80 mg BEDTIME [facility] Administration Doxazosin Mesylate 2 mg 11/23/20 09:00 11/24/20 10:46 Doxazosin Mesylate 2 Mg Tablet PO Not Given DAILY [facility] Protocol Heparin Sodium (Porcine) 5,000 unit 11/22/20 14:15 11/24/20 10:51 Heparin Sodium,Porcine 5,000 Unit/Ml Vial SUBCUT Not Given Q12H [facility] Potassium Chloride 10 meq in 100 mls @ 100 mls/hr 11/24/20 11:00 11/24/20 10:47 IV 11/24/20 14:59 100 mls/hr Q1H [facility] Administration Cefazolin Sodium/Dextrose 2 gm in 50 mls @ 100 mls/hr 11/24/20 11:00 Ancef IV 11/25/20 10:59 PREOP [facility] Pharmacy Consult 1 each 11/22/20 09:50 Consult Rx Perform Med Rec MISCELLANE ONCE PRN Consult order Potassium Chloride 10 meq 11/23/20 09:00 11/24/20 10:47 Potassium Chloride Er 10 Meq Capsule.Er PO Not Given DAILY [facility] Potassium Chloride 40 meq 11/24/20 11:00 11/24/20 10:48 Potassium Chloride Packet 20 Meq Packet PO 11/24/20 15:01 Not Given Q4H [facility] Sodium Chloride 3 ml 11/22/20 16:00 11/24/20 08:02 0.9 % Sodium Chloride Flush 3 Ml Syringe IVFLUSH 3 ml QSHIFT [facility] Administration Tamoxifen Citrate 20 mg 11/23/20 09:00 11/24/20 10:47 Tamoxifen Citrate 10 Mg Tablet PO Not Given DAILY [facility] Time Spent With Patient Time: Total time spent is greater than 50% in coordination of care (as documented) at patient's floor/unit and/or counseling patient: Time with patient: 15 - 24 minutes Procedures Date of Service Date of Service: 11/24/20
[2020-11-24] MEDS: Lactated Ringers 1,000 ML 20 ML IVCONT (13:00)
--- NOTE | 2020-11-24 13:02 | PC.NURSE ---
Intake completed at bedside with patients HCP and daughter, Veronica Salaazr.
--- NOTE | 2020-11-24 13:07 | PC.NURSE ---
Per daughter, patient had a spoonful of eggs this AM at 0700 however spit most of them out. Other than that, NPO since midnight last night. Anesthesia aware.
--- NOTE | 2020-11-24 13:09 | MHC.SHP ---
Pre-Procedural Eval Section B Chief Complaint: AMS austen Allergies: Allergies Allergy/AdvReac Type Severity Reaction Status Date / Time clindamycin [Clindamycin] Allergy Mild HIVES, RASH Verified 11/22/20 09:49 lisinopril [LISINOPRIL] Allergy Unknown COUGH Verified 11/22/20 09:49 Clindamycin HCl Allergy Unknown rash Uncoded 03/12/17 00:00 Plan I have reviewed the history and physical and performed a pertinent physical examination on my patient. No changes have occurred unless specified.
--- NOTE | 2020-11-24 14:11 | P.CONAN_ITS ---
HPI - Anesthesia Eval Consult details Narrative: 75yo female patient for pacemaker insertion PMFSH Active Problems Active Problems: All Active Problems (Updated 11/24/20 @ 12:07 by Mikael Faulkner MD) Sinus pause (Acute) Bradycardia (Acute ~11/2020) Invasive ductal carcinoma of left breast, stage 1 (Acute ~08/2016) Dementia (Acute) Past Medical History Medical History Bradycardia (~11/2020) Dementia HTN (hypertension) Hyperlipidemia Invasive ductal carcinoma of left breast, stage 1 (~08/2016) Osteopenia Family History Family history of problems with anesthesia: No Surgical History Surgical History History of carpal tunnel surgery of left wrist (~2014) History of cataract surgery (~2013) History of colonoscopy (~2019) History of lumpectomy of left breast (~2016) History of Problems with Anesthesia: No Social History Social History Household Members: Children Housing: House Do you presently have visiting nurse or other home services: No Patient Tobacco Use Status: Never used Tobacco Advance Directives Date on File: 11/23/20 service: No Current occupational status: retired Meds Allergies Allergy/AdvReac Type Severity Reaction Status Date / Time clindamycin [Clindamycin] Allergy Mild HIVES, RASH Verified 11/22/20 09:49 lisinopril [LISINOPRIL] Allergy Unknown COUGH Verified 11/22/20 09:49 Clindamycin HCl Allergy Unknown rash Uncoded 03/12/17 00:00 Active Medications: Current Medications Generic Name Dose Route Start Last Admin Trade Name Freq PRN Reason Stop Dose Admin Amlodipine Besylate 10 mg 11/23/20 09:00 11/24/20 10:46 Amlodipine Besylate 10 Mg Tablet PO Not Given DAILY DAYANNA Protocol Atorvastatin Calcium 80 mg 11/23/20 21:00 11/23/20 20:21 Atorvastatin Calcium 80 Mg Tablet PO 80 mg BEDTIME DAYANNA Administration Doxazosin Mesylate 2 mg 11/23/20 09:00 11/24/20 10:46 Doxazosin Mesylate 2 Mg Tablet PO Not Given DAILY DAYANNA Protocol Heparin Sodium (Porcine) 5,000 unit 11/22/20 14:15 11/24/20 10:51 Heparin Sodium,Porcine 5,000 Unit/Ml Vial SUBCUT Not Given Q12H DAYANNA Potassium Chloride 10 meq in 100 mls @ 100 mls/hr 11/24/20 11:00 11/24/20 12:24 IV 11/24/20 14:59 100 mls/hr Q1H DAYANNA Administration Cefazolin Sodium/Dextrose 2 gm in 50 mls @ 100 mls/hr 11/24/20 11:00 Ancef IV 11/25/20 10:59 PREOP DAYANNA Lactated Ringer's 1,000 mls @ 20 mls/hr 11/24/20 14:15 Lr IVCONT .Q24H [facility] Pharmacy Consult 1 each 11/22/20 09:50 Consult Rx Perform Med Rec MISCELLANE ONCE PRN Consult order Potassium Chloride 10 meq 11/23/20 09:00 11/24/20 10:47 Potassium Chloride Er 10 Meq Capsule.Er PO Not Given DAILY [facility] Potassium Chloride 40 meq 11/24/20 11:00 11/24/20 10:48 Potassium Chloride Packet 20 Meq Packet PO 11/24/20 15:01 Not Given Q4H [facility] Sodium Chloride 3 ml 11/22/20 16:00 11/24/20 08:02 0.9 % Sodium Chloride Flush 3 Ml Syringe IVFLUSH 3 ml QSHIFT [facility] Administration Tamoxifen Citrate 20 mg 11/23/20 09:00 11/24/20 10:47 Tamoxifen Citrate 10 Mg Tablet PO Not Given DAILY [facility] Home Medications Medication Instructions Recorded Confirmed Last Taken Type amlodipine 1 tab PO DAILY 11/22/20 11/22/20 11/22/20 History aspirin 81 mg PO DAILY 11/22/20 11/22/20 11/22/20 History atorvastatin 1 tab PO DAILY 11/22/20 11/22/20 11/22/20 History donepezil 1 tab PO BEDTIME 11/22/20 11/22/20 11/22/20 History doxazosin 1 tab PO DAILY 11/22/20 11/22/20 11/22/20 History folic acid 0.4 mg PO DAILY 11/22/20 11/22/20 11/22/20 History potassium chloride 1 tab PO DAILY 11/22/20 11/22/20 11/22/20 History tamoxifen 1 tab PO DAILY 11/22/20 11/22/20 11/22/20 History valsartan-hydrochlorothiazide 1 tab PO DAILY 11/22/20 11/22/20 11/22/20 History Exam Exam Date and Time: November 24, 2020 141 Height,Weight and Vital Signs: Height 5 ft 2 in Weight 80.9 kg Last Vital Signs Temp 100.5 F H 11/24/20 12:50 Pulse 71 11/24/20 12:50 Resp 20 11/24/20 12:50 BP 139/52 L 11/24/20 12:50 Pulse Ox 94 11/24/20 12:50 Pertinent Lab Results Pertinent Lab Results: Laboratory Tests 11/22/20 11/22/20 11/22/20 11:03 11:03 11:03 WBC 6.0 RBC 3.71 L Hgb 10.9 L Hct 33.3 L MCV 89.8 MCH 29.4 MCHC 32.7 RDW 12.7 Plt Count 206 MPV 10.5 Immature Gran % (Auto) 0.2 Neut % (Auto) 75.0 H Lymph % (Auto) 17.4 L Dawes % (Auto) 5.9 Eos % (Auto) 0.8 Baso % (Auto) 0.7 Lymph # (Auto) 1.0 L Dawes # (Auto) 0.4 Eos # (Auto) 0.1 Baso # (Auto) 0.0 Abs Immat Gran (auto) 0.01 Absolute Neuts (auto) 4.5 Absolute Nucleated RBC 0.000 Nucleated RBC % (auto) 0.0 PT 12.7 INR 1.1 APTT 26.4 Sodium 140 Potassium 2.9 L D Chloride 109 H Carbon Dioxide 20 L Anion Gap 14 BUN 32 H Creatinine 1.65 H Estim Creat Clear Calc 28.6 Estimated GFR 30 Random Glucose 97 Lactic Acid Calcium 9.7 Magnesium 2.2 Total Bilirubin 0.4 Direct Bilirubin 0.2 AST 56 H ALT 22 Alkaline Phosphatase 62 Ammonia Troponin I High Sens B-Natriuretic Peptide Total Protein 6.5 Albumin 3.5 Lipase 33 TSH 0.90 Urine Color Urine Appearance Urine pH Ur Specific [place] Urine Protein Urine Glucose (UA) Urine Ketones Urine Blood Urine Nitrite Ur Leukocyte Esterase COVID-19 (JANET) COVID-19 Clin Com Blood Type Antibody Screen 11/22/20 11/22/20 11/22/20 11:03 11:03 11:03 WBC RBC Hgb Hct MCV MCH MCHC RDW Plt Count MPV Immature Gran % (Auto) Neut % (Auto) Lymph % (Auto) Dawes % (Auto) Eos % (Auto) Baso % (Auto) Lymph # (Auto) Dawes # (Auto) Eos # (Auto) Baso # (Auto) Abs Immat Gran (auto) Absolute Neuts (auto) Absolute Nucleated RBC Nucleated RBC % (auto) PT INR APTT Sodium Potassium Chloride Carbon Dioxide Anion Gap BUN Creatinine Estim Creat Clear Calc Estimated GFR Random Glucose Lactic Acid 0.9 Calcium Magnesium Total Bilirubin Direct Bilirubin AST ALT Alkaline Phosphatase Ammonia 34 Troponin I High Sens 46.9 H* B-Natriuretic Peptide 76 Total Protein Albumin Lipase TSH Urine Color Urine Appearance Urine pH Ur Specific [place] Urine Protein Urine Glucose (UA) Urine Ketones Urine Blood Urine Nitrite Ur Leukocyte Esterase COVID-19 (JANET) COVID-[employer] Com Blood Type Antibody Screen 11/22/20 11/22/20 11/22/20 11:39 11:54 14:08 WBC RBC Hgb Hct MCV MCH MCHC RDW Plt Count MPV Immature Gran % (Auto) Neut % (Auto) Lymph % (Auto) Dawes % (Auto) Eos % (Auto) Baso % (Auto) Lymph # (Auto) Dawes # (Auto) Eos # (Auto) Baso # (Auto) Abs Immat Gran (auto) Absolute Neuts (auto) Absolute Nucleated RBC Nucleated RBC % (auto) PT INR APTT Sodium Potassium Chloride Carbon Dioxide Anion Gap BUN Creatinine Estim Creat Clear Calc Estimated GFR Random Glucose Lactic Acid Calcium Magnesium Total Bilirubin Direct Bilirubin AST ALT Alkaline Phosphatase Ammonia Troponin I High Sens 40.6 H* B-Natriuretic Peptide Total Protein Albumin Lipase TSH Urine Color YELLOW Urine Appearance CLEAR Urine pH 6.0 Ur Specific [place] 1.025 Urine Protein TRACE Urine Glucose (UA) NEG Urine Ketones NEG Urine Blood NEG Urine Nitrite NEG Ur Leukocyte Esterase NEG COVID-19 (JANET) Negative COVID-19 [employer] Com See Note Blood Type Antibody Screen 11/23/20 11/23/20 11/24/20 05:13 05:13 06:07 WBC 5.9 RBC 3.42 L Hgb 10.1 L Hct 30.6 L MCV 89.5 MCH 29.5 MCHC 33.0 RDW 12.6 Plt Count 222 MPV 10.6 Immature Gran % (Auto) Neut % (Auto) Lymph % (Auto) Dawes % (Auto) Eos % (Auto) Baso % (Auto) Lymph # (Auto) Dawes # (Auto) Eos # (Auto) Baso # (Auto) Abs Immat Gran (auto) Absolute Neuts (auto) Absolute Nucleated RBC 0.000 Nucleated RBC % (auto) 0.0 PT INR APTT Sodium 143 142 Potassium 2.8 L 2.6 L Chloride 113 H 109 H Carbon Dioxide 19 L 21 L Anion Gap 14 15 BUN 22 H 23 H Creatinine 1.14 1.10 Estim Creat Clear Calc 41.3 42.8 Estimated GFR 46 48 Random Glucose 78 68 Lactic Acid Calcium 9.3 9.4 Magnesium Total Bilirubin Direct Bilirubin AST ALT Alkaline Phosphatase Ammonia Troponin I High Sens B-Natriuretic Peptide Total Protein Albumin Lipase TSH Urine Color Urine Appearance Urine pH Ur Specific [place] Urine Protein Urine Glucose (UA) Urine Ketones Urine Blood Urine Nitrite Ur Leukocyte Esterase COVID-19 (JANET) COVID-19 [employer] Com Blood Type Antibody Screen 11/24/20 08:57 WBC RBC Hgb Hct MCV MCH MCHC RDW Plt Count MPV Immature Gran % (Auto) Neut % (Auto) Lymph % (Auto) Dawes % (Auto) Eos % (Auto) Baso % (Auto) Lymph # (Auto) Dawes # (Auto) Eos # (Auto) Baso # (Auto) Abs Immat Gran (auto) Absolute Neuts (auto) Absolute Nucleated RBC Nucleated RBC % (auto) PT INR APTT Sodium Potassium Chloride Carbon Dioxide Anion Gap BUN Creatinine Estim Creat Clear Calc Estimated GFR Random Glucose Lactic Acid Calcium Magnesium Total Bilirubin Direct Bilirubin AST ALT Alkaline Phosphatase Ammonia Troponin I High Sens B-Natriuretic Peptide Total Protein Albumin Lipase TSH Urine Color Urine Appearance Urine pH Ur Specific [place] Urine Protein Urine Glucose (UA) Urine Ketones Urine Blood Urine Nitrite Ur Leukocyte Esterase COVID-19 (JANET) COVID-19 [employer] Com Blood Type A Positive Antibody Screen NEGATIVE Airway Mallampati Class: II (Unable to assess) TM Dist: >3cm Neck ROM: Limited Loose/Missing/Broken Teeth: Yes (No teeth) Heart: RRR Lungs: CTAB Assessment and Plan Assessment Anesthesia Assessment: Anesthesia Plan Discussed (Discussed with patient's daughter(HCP)) and Chart Reviewed Final Anesthetic Review NPO: No ASA Class: IV and Emergency Final Preanesthetic Review: Meds/Allgs Chart Reviewed, Consent Obtained/Reviewed, Anes Risks/Benef Reviewed and DNR Form (If Appl.) Patient Risk: High Procedure Risk: Intermediate Assessment/Block/Sedation in SS: Assess/Block/Sedation-SS Anesthetic Plan Anesthetic Plan: GA (Geta with RSI- patient had some breakfast, advanced dementia, surgeon request) Disposition: Inp. Admit - IMC and Inp. Admit - ICU
--- NOTE | 2020-11-24 15:05 | W.PM.OPN ---
Operative Note Operative Note Date of Service: 11/24/20 Narrative: Preoperative diagnosis: Symptomatic sinus Stephen with multiple pauses Postoperative diagnosis: Same Operation: Placement of dual-chamber permanent pacemaker with fluoroscopic guidance Surgeon: Damien Lyles MD Specimens: None EBL: 5 cc Operative findings: The pacemaker placed was a Medtronic XT DR SANAM Crowder serial number [id number]. The atrial lead was a Medtronic serial number [id number]. The ventricular lead was a Medtronic serial number [id number]. Parameters in the right atrial lead sensing was 4.0 with impedance of 507, and threshold 0.5 volts at 0.4 milliseconds. In the ventricular lead threshold was 0.4 volts at 0.5 milliseconds with an impedance of 608 Ohms. Patient tolerated procedure well. Operation in detail: The patient was brought to the operating room, placed supine on the operating room table, anesthesia moderate of ices were placed, and the patient was gently sedated. A time-out was performed confirming the correct patient site and procedure. After injection of local anesthetic, a 3 cm incision was made in the left infraclavicular region and carried down to the pectoralis fascia with electrocautery. The patient was then placed in Trendelenburg and an 18 gauge needle was used to access subclavian vein on the 1st take. And a wire was placed into the right atrium under fluoroscopic guidance. A 2nd 18 gauge needle was then used to access the subclavian vein again on the 1st ache and a wire was placed under fluoroscopic guidance and parked in the right atrium. The patient was then taken out of Trendelenburg and a pocket was formed using blunt and electrocautery dissection. The 1st 6 Iranian sheath was then placed over wire and the wire and dilator were removed. The ventricular lead was then placed through the sheath and parked in the right atrium and the peel-away sheath was removed. After several attempts using a curved stylet we were eventually able to access the right ventricle and the tip of the lead was positioned at the right ventricular apex. The endocardial screw was deployed and the lead was tested with excellent parameters above. This lead was then secured with silk sutures to the pectoralis fascia. The 2nd 6 Iranian sheath was then placed over the 2nd wire and a wire dilator removed. The atrial lead was then placed and parked in the right atrium. AJ stylet was used to position this in the right atrial appendage. The endocardial screws deployed and the lead was tested with excellent parameters above. This lead was also secured with silk sutures to the pectoralis fascia. The pocket was then copiously irrigated with antibiotic solution. The leads were then placed in their appropriate receptacles and the pacemaker was tested again with excellent parameters. The generator and excess lead was then placed into the pocket. The wound was then closed with a deep running 3-0 Vicryl suture followed by running 3-0 Vicryl suture and Dermabond glue in the skin. The patient was then brought back to the ICU in stable condition.
[2020-11-24] MEDS: Atorvastatin Calcium 80 MG TABLET PO (20:02)
[2020-11-25] VITALS (7 sets, daily range): BP systolic 115–154; BP diastolic 56–82; PULSE 60–61; RESP 18–20; TEMP 36.7–37.3; O2SAT 94–98
[2020-11-25 01:18] LABS: Glucose, Whole Blood 80 mg/dL (60-115)
[2020-11-25] MEDS: Heparin Sodium,Porcine 5,000 UNIT/ML VIAL 5000 UNIT SUBCUT ×2 (01:38→14:25)
[2020-11-25 06:04] LABS: Glucose, Whole Blood 97 mg/dL (60-115)
[2020-11-25 06:39] LABS: MANUAL DIFF FLAG NO
--- NOTE | 2020-11-25 06:50 | HO.POSTANES ---
Post Anesthesia Evaluation Post Anesthesia Evaluation Vital Signs: Vital Signs Temp Pulse Resp BP Pulse Ox 11/25/20 04:00 98.1 F 60 18 154/82 H 97 11/25/20 00:00 99 F 61 18 116/56 L 97 11/24/20 19:36 98.8 F 68 22 H 138/75 100 Anesthesia: General Mental Status: Awake Pain Control: Satisfactory Hydration: Adequate Anesthesia-Related Issues: No Anes. Related Issues
[2020-11-25 06:52] LABS: Basophils Percent Auto 0.3 % (0-2); Eosinophils Absolute Auto 0.1 X10*3/uL (0.0-0.4); Eosinophils Percent Auto 1.8 % (0-4); Hematocrit 29.7 % (37-47); Hemoglobin 9.6 g/dl (12.0-16.0); Imm Gran Abs Auto 0.01 X10*3/uL (0.00-0.03); Imm Gran Pct Auto 0.2 % (0.0-0.4); Lymphocytes Absolute Auto 1.3 X10*3/uL (1.2-4.9); Lymphocytes Percent Auto 21.2 % (20-40); Mean Corpuscular HGB Conc 32.3 g/dl (31.0-35.0); Mean Corpuscular Hemoglobin 29.4 pg (27.0-33.0); Mean Corpuscular Volume 91.1 fL (80-98); Mean Platelet Volume 10.6 fL (9.4-12.3); Monocytes Absolute Auto 0.5 X10*3/uL (0.1-1.2); Monocytes Percent Auto 8.9 % (2-11); Neutrophils Percent Auto 67.6 % (45-73); Platelet Count 197 X10*3/uL (160-400); Red Blood Count 3.26 X10*6/uL (4.20-5.50); Red Cell Distribution Width 12.7 % (11.0-16.0)
[2020-11-25 07:33] LABS: Anion Gap 12 (12-20); Blood Urea Nitrogen 22 mg/dL (9-16); Calcium 8.7 mg/dL (8.4-10.2); Carbon Dioxide 23 mmol/L (22-29); Chloride 109 mmol/L (96-108); Creatinine Clr Calc Pharmacy 52.4; Estimated Glomerular Filt Rate > 60; Glucose Random 92 mg/dL (60-115); Potassium 2.8 mmol/L (3.3-5.1); Sodium 141 mmol/L (135-145)
[2020-11-25] MEDS: Doxazosin Mesylate 2 MG TABLET PO (08:03)
[2020-11-25] MEDS: amLODIPine Besylate 10 MG TABLET PO (08:04)
[2020-11-25] MEDS: Tamoxifen Citrate 10 MG TABLET 20 MG PO (08:05)
[2020-11-25] MEDS: 0.9 % Sodium Chloride Flush 3 ML SYRINGE IVFLUSH (08:07)
[2020-11-25] MEDS: Potassium Chloride/H20 10 MEQ/100 ML PIGGYBACK 100 MEQ IV ×2 (11:13→13:32)
[2020-11-25] MEDS: Potassium Chloride Packet 20 MEQ PACKET 40 MEQ PO (11:14)
[2020-11-25] MEDS: Ketorolac Tromethamine 15 MG/ML VIAL IVPUSH (12:11)
--- NOTE | 2020-11-25 12:11 | PM.DS ---
DS: Providers Provider Date of Service: 11/25/20 Date of admission: 11/22/20 14:09 Primary care physician: Dhaval Garces MD Consults: 11/22/20 14:11 Consult to Cardiology Routine Consulting Provider: Mikael Faulkner Reason for consultation: bradycardia 11/22/20 16:30 Consult to Thoracic Surgery Routine Consulting Provider: Damien Lyles Reason for consultation: possible pacer for severe austen 11/23/20 00:40 Consult to Wound Care Routine Consulting Provider: Debbie Nguyen Reason for consultation: PRESSURE INJURY STAGE 2 TO COCCYX DS: Diagnosis Discharge Diagnosis (1) Bradycardia: Status: Acute (2) Acute kidney injury: Status: Acute (3) Hypokalemia: Status: Acute (4) Sinus pause: Status: Acute (5) Pacemaker: Status: Acute Problem details: (Medtronic DCPP - placed 11/24/20) (6) Symptomatic bradycardia: Status: Acute DS: Medications Discharge Medications Home Medications: Home Medications Medication Instructions Recorded Confirmed amlodipine 1 tab PO DAILY 11/22/20 11/22/20 aspirin 81 mg PO DAILY 11/22/20 11/22/20 atorvastatin 1 tab PO DAILY 11/22/20 11/22/20 donepezil 1 tab PO BEDTIME 11/22/20 11/22/20 doxazosin 1 tab PO DAILY 11/22/20 11/22/20 folic acid 0.4 mg PO DAILY 11/22/20 11/22/20 potassium chloride 1 tab PO DAILY 11/22/20 11/22/20 tamoxifen 1 tab PO DAILY 11/22/20 11/22/20 valsartan-hydrochlorothiazide 1 tab PO DAILY 11/22/20 11/22/20 DS: Summary Hospital Course Hospital Course: Admission note HPI 75-year-old female brought in by family for right-sided weakness and altered mental status. Patient has baseline dementia, but is normally communicative and ambulatory. Family noted the patient had become weak over the last couple days, specifically leaning towards the right side, and unable to walk on her own. She also seemed more lethargic and confused than her baseline. Symptoms seem to persist, therefore, patient was brought to the ED. In ED patient noted to have acute kidney injury, hyperkalemia, significant sinus bradycardia that responded to atropine. Patient is not on beta-natan or calcium channel natan, however, she is on Aricept. Hospital course The patient was admitted to the hospital for evaluation of increased lethargy, altered mentation. The patient was found to have acute kidney injury associated with hypokalemia that was treated with IV fluid and potassium replacement with good response as her kidney function improved back to normal baseline. She required multiple extra doses of potassium to improve its level. She was noted to sinus bradycardia with multiple episodes of pauses. Evaluated by Cardiology team who recommended pacemaker placement. The patient developed more lethargy and prolonged pauses of 5 seconds with significant bradycardia around 30. Thoracic surgery team was contacted and the permanent (Medtronic DCPP) pacemaker was placed on 11/24/2020. Patient rated the procedure well and her mentation and activity improved afterward. She remains mildly disoriented from known history dementia and hospital stay. Time Spent with Patient Time attestation: Total time spent providing and/or coordinating discharge services: Discharge coordination time: Greater than 30 minutes Quality: Stroke Does the patient have a stroke diagnosis?: No Physical Exam Vital Signs: Vital Signs: Last Vital Signs Temp 98.2 F 11/25/20 08:00 Pulse 60 11/25/20 08:04 Resp 20 11/25/20 08:00 BP 137/60 11/25/20 08:04 Pulse Ox 98 11/25/20 08:00 Body Mass Index 32.5 Const: Other: Constitutional : Alert with stimulation, disoriented, not in distress Neck : Normal inspection, Supple Cardiovascular : RRR, S1 S2, lower extremity edema, Respiratory : Decreased bilateral air entry, no crackles, wheezes or rhonchi Gastrointestinal: soft, lax, Normal bowel sounds, Non tender Skin : Warm/Dry, No rash Neurological : Alert with stimulation, not much verbal, No focal deficit DS: Data Data Completed and Pending Labs on day of discharge: Laboratory Results - last 24 hr 11/25/20 11/25/20 11/25/20 01:15 05:20 05:20 WBC 6.0 RBC 3.26 L Hgb 9.6 L Hct 29.7 L MCV 91.1 MCH 29.4 MCHC 32.3 RDW 12.7 Plt Count 197 MPV 10.6 Immature Gran % (Auto) 0.2 Neut % (Auto) 67.6 Lymph % (Auto) 21.2 Banner % (Auto) 8.9 Eos % (Auto) 1.8 Baso % (Auto) 0.3 Lymph # (Auto) 1.3 [place]anner # (Auto) 0.5 Eos # (Auto) 0.1 Baso # (Auto) 0.0 Abs Immat Gran (auto) 0.01 Absolute Neuts (auto) 4.0 Absolute Nucleated RBC 0.000 Nucleated RBC % (auto) 0.0 Sodium 141 Potassium 2.8 L Chloride 109 H Carbon Dioxide 23 Anion Gap 12 BUN 22 H Creatinine 0.90 Estim Creat Clear Calc 52.4 Estimated GFR > 60 POC Glucose 80 Random Glucose 92 D Calcium 8.7 D 11/25/20 05:59 WBC RBC Hgb Hct MCV MCH MCHC RDW Plt Count MPV Immature Gran % (Auto) Neut % (Auto) Lymph % (Auto) [place] % (Auto) Eos % (Auto) Baso % (Auto) Lymph # (Auto) [place] # (Auto) Eos # (Auto) Baso # (Auto) Abs Immat Gran (auto) Absolute Neuts (auto) Absolute Nucleated RBC Nucleated RBC % (auto) Sodium Potassium Chloride Carbon Dioxide Anion Gap BUN Creatinine Estim Creat Clear Calc Estimated GFR POC Glucose 97 Random Glucose Calcium Preliminary micro results at discharge 11/22/20 11:54 Blood Culture - Preliminary Blood - Venous No growth after 48 hours. 11/22/20 11:48 Blood Culture - Preliminary Blood - Venous No growth after 48 hours. Discharge Plan Discharge Patient Disposition: Home, Self-Care Discharge Diagnosis: Symptomatic bradycardia Referrals: Dhaval Garces MD [Primary Care Provider] - 1 Week Discharge Medications: Continued atorvastatin 80 mg tablet 1 tab PO DAILY RF: 0 donepezil 5 mg tablet 1 tab PO BEDTIME RF: 0 potassium chloride 10 mEq tablet extended release 1 tab PO DAILY RF: 0 folic acid 400 mcg Tablet 0.4 mg PO DAILY RF: 0 amlodipine 10 mg tablet 1 tab PO DAILY RF: 0 aspirin 81 mg Tablet,Chewable 81 mg PO DAILY RF: 0 tamoxifen 20 mg tablet 1 tab PO DAILY RF: 0 doxazosin 2 mg tablet 1 tab PO DAILY RF: 0 valsartan-hydrochlorothiazide 320-12.5 mg tablet 1 tab PO DAILY RF: 0 Discharge Orders: Discharge Order (Routine); Ordered 11/25/20 Ordered By: Suresh Mendoza Diet: advance to usual diet Activity on Discharge: As tolerated Stand Alone Forms: Patient Portal Discharge page Other Ambulatory Orders: Basic Metabolic Panel (Routine) Timeframe: 1 Week Facility: [facility] - Location: Laboratory Ordered By: Suresh Mendoza Care Plan Goals: Read below Health Concerns: Read below Plan of Treatment: You were admitted to the hospital for increased lethargy and kidney injury. Your noted to have slow heart beats with multiple pauses. You were evaluated by Cardiology team who recommended placing a permanent pacemaker that was done by Dr. Ashby from thoracic surgery. Your kidney function was noted to be elevated at time of presentation with low potassium level. Improved during the hospital stay with fluids and potassium supplement. Assessment: Continue your home medications as prescribed To follow up with Cardiology and thoracic surgery as scheduled To repeat blood test in 1 week Discharge Date/Time: 11/25/20 17:00
[2020-11-25 13:44] LABS: Anion Gap 12 (12-20); Blood Urea Nitrogen 20 mg/dL (9-16); Calcium 9.2 mg/dL (8.4-10.2); Carbon Dioxide 24 mmol/L (22-29); Chloride 110 mmol/L (96-108); Creatinine Clr Calc Pharmacy 54.8; Estimated Glomerular Filt Rate > 60; Glucose Random 85 mg/dL (60-115); Potassium 4.1 mmol/L (3.3-5.1); Sodium 142 mmol/L (135-145)
--- NOTE | 2020-11-25 16:23 | PM.PNTS ---
Subjective Subjective Date of Service: 11/25/20 Interval history: Patient is POD #1 s/p permanent pacemaker placement. Factory rep has interrogated pacer and stated that it is working properly. Patient is maintaining heart rate of 60 bpm's or greater. Patient is awake, alert and oriented to person and place. Her surgical incision is intact with no evidence of infection such as erythema, edema or induration. Her left arm remains in sling and was instructed that she needs to continue to remain in sling for 48 hours after her operation. Physical Exam Vital Signs: Vital Signs: Last Vital Signs Temp 99.2 F 11/25/20 15:40 Pulse 60 11/25/20 15:40 Resp 18 11/25/20 15:40 BP 115/57 L 11/25/20 15:40 Pulse Ox 94 11/25/20 15:40 Body Mass Index 32.5 Const: General: no acute distress, alert and awake Orientation/consciousness: oriented to person and oriented to place Neck: Other: Trachea midline no evidence of subcutaneous air or crepitus. Chest: Other: Left-sided pacemaker placed anteriorly along chest wall. Incision intact no evidence of infection, wound dehiscence or drainage. Resp: Other: Breath sounds clear to auscultation bilaterally no adventitious sounds such as wheezes or rhonchi Cardio: Rhythm: regular rhythm and abnormal rhythm GI: Inspection: Yes normal to inspection Palpation (GI): nontender Auscultation: normal bowel sounds Neuro: General: oriented to person and oriented to place Progress Note: A&P Assessment and plan (1) Symptomatic bradycardia: Status: Acute (2) Pacemaker: Status: Acute Assessment and Plan: POD#1 S/P Placement of dual-chamber permanent pacemaker with fluoroscopic guidance. Pacemaker junior sales representative has interrogated device and stated it is working properly. ACTIVITY: ARM MOVEMENT RESTRICTIONS: No lifting your left arm over your head or behind your back, no pushing/pulling/lifting anything >10lb with your leftarm for 6-8 weeks. This ensures the pacemaker wires stay in place and do not get pulled out accidentally. Make sure you are doing gentle range of motion exercises with the left arm (such as pendulum exercise) to make sure your elbow and shoulder do not get frozen up. ARM SLING: Keep the sling on until tomorrow. You may then take the sling off and leave it off. HOWEVER, if you are noticing a difficulty limiting your left arm movement (as outline above) then wear your sling during the day to make sure you are adhering to the restrictions above. Ask your doctor when you can expect to return to work. You can still exercise. It is good for your body and your heart. Talk with your doctor about an exercise plan. INCISION CARE: You may shower starting tomorrow. Sponge bathe only until then. Do not submerge yourself in water (baths, pools, etc.) for 2 weeks. Monitor the incision for increased redness, swelling, bruising, pain, open area, or drainage. OTHER PRECAUTIONS: Before you receive any treatment, tell all healthcare providers (including your dentist) that you have a pacemaker. You will be given an ID card that contains information about your pacemaker. Always carry this card with you. You can show this card if your pacemaker sets off a metal detector. You should also show it to avoid screening with a hand-held security wand. Keep your cell phone away from your pacemaker. Do not carry the phone in your shirt pocket, even it if is turned off. Avoid strong magnets. Examples are those used in MRI's or in hand-held security wands. Avoid strong electrical acosta. Examples are those made by radio transmitting towers, ham radios, and heavy-duty electrical equipment. Avoid leaning over the open galvan of a running car. A running engine creates an electrical field. Most household and yard appliances will not cause any problems. If you use any large power tools, such as an industrial manager search, talk with your doctor. WHEN TO CALL YOUR DOCTOR: Call your doctor immediately if you have any of the following: Dizziness Chest pain Lack of energy Fainting spells Twitching chest muscles Rapid pule or pounding heartbeat Shortness of breath Pain around your pacemaker Fever above 100.4 F (38 C) or other signs of infection (redness, swelling, drainage, or warmth at the incision site). Hiccups that will not stop FOLLOWUP APPOINTMENTS: Call Dr. Lyles's office (Thoracic Surgery) as soon as you get home to schedule a followup appointment for 2 weeks from now. The office number is / . Call your compression molding machine tender to make an appointment for the next couple weeks. Make regular follow-up appointments with your doctor. He or she will check the pacemaker to make sure it is working properly. Reply Reply All Forward Fall Risk Details Current Medications: Current Medications Generic Name Dose Route Start Last Admin Trade Name Kya PRN Reason Stop Dose Admin Amlodipine Besylate 10 mg 11/23/20 09:00 11/25/20 08:04 Amlodipine Besylate 10 Mg Tablet PO 10 mg DAILY DAYANNA Administration Protocol Atorvastatin Calcium 80 mg 11/23/20 21:00 11/24/20 20:02 Atorvastatin Calcium 80 Mg Tablet PO 80 mg BEDTIME DAYANNA Administration Doxazosin Mesylate 2 mg 11/23/20 09:00 11/25/20 08:03 Doxazosin Mesylate 2 Mg Tablet PO 2 mg DAILY DAYANNA Administration Protocol Fentanyl 25 mcg 11/24/20 15:09 Fentanyl Citrate/Pf 100 Mcg/2 Ml Vial IVPUSH Q5M PRN Pain, Moderate (Pain Scale 4-6 Heparin Sodium (Porcine) 5,000 unit 11/22/20 14:15 11/25/20 14:25 Heparin Sodium,Porcine 5,000 Unit/Ml Vial SUBCUT 5,000 unit Q12H DAYANNA Administration Lactated Ringer's 1,000 mls @ 20 mls/hr 11/24/20 15:00 11/24/20 13:00 Lr IVCONT 20 mls/hr .Q24H DAYANNA Administration Ondansetron HCl 4 mg 11/24/20 15:09 Ondansetron Hcl 4 Mg/2 Ml Vial IVPUSH ONCE PRN Nausea and Vomiting Pharmacy Consult 1 each 11/22/20 09:50 Consult Rx Perform Med Rec MISCELLANE ONCE PRN Consult order Potassium Chloride 10 meq 11/23/20 09:00 11/25/20 08:02 Potassium Chloride Er 10 Meq Capsule.Er PO 10 meq DAILY DAYANNA Administration Sodium Chloride 3 ml 11/22/20 16:00 11/25/20 08:07 0.9 % Sodium Chloride Flush 3 Ml Syringe IVFLUSH 3 ml QSHIFT DAYANNA Administration Tamoxifen Citrate 20 mg 11/23/20 09:00 11/25/20 08:05 Tamoxifen Citrate 10 Mg Tablet PO 20 mg DAILY DAYANNA Administration Time Spent With Patient Time: Total time spent is greater than 50% in coordination of care (as documented) at patient's floor/unit and/or counseling patient: Time with patient: less than 15 minutes Procedures Date of Service Date of Service: 11/25/20
== END 2020-11-25 17:00 | disposition home or self-care (01) | DRG 242 ==
LOC: HO.ED 09:51 → HO.EDOVER 14:19 → HO.IMC 14:43 → HO.ICU 11-24 11:02 → HO.IMC 11-24 12:14
PROVIDERS: Physician Assistant; Surgery; Admitting Provider Internal Medicine; Emergency Provider Emergency Medicine; PCP Internal Medicine; Visit Provider Student in an Organized Health Care Education/Training Program
DX: I49.5 Sick sinus syndrome (principal); G93.41 Metabolic encephalopathy; G81.91 Hemiplegia, unspecified affecting right dominant side; N17.9 Acute kidney failure, unspecified; R00.1 Bradycardia, unspecified; F03.90 Unspecified dementia, unspecified severity, without behavioral disturbance, psychotic disturbance, mood disturbance, and anxiety; I10 Essential (primary) hypertension; C80.1 Malignant (primary) neoplasm, unspecified; E78.5 Hyperlipidemia, unspecified; Z79.82 Long term (current) use of aspirin; Z79.810 Long term (current) use of selective estrogen receptor modulators (SERMs); Z79.899 Other long term (current) drug therapy; Z66 Do not resuscitate
CPT/HCPCS: 36415; 70450; 70551; 71045; 80048; 80076; 81003; 82140; 82947; 83605; 83690; 83735; 83880; 84443; 84484; 85025; 85027; 85610; 85730; 86850; 86900; 86901; 87040; 87635; 93005; 99285; C1785; C1892; C1898; J0330; J0461; J0690; J1885; J2370; J2405; J3010; J3370